=== PATIENT | male | born 1945 ===

== ENCOUNTER 2017-01-25 15:10 | Inpatient (IN) | payer OTHER ==
[2017-01-25 15:14] VITALS: BMI 22.3
--- NOTE | 2017-01-25 16:23 | CT ---
PROCEDURE: CT NECK WITHOUT CONTRAST HISTORY: retaind food right throat COMPARISON: None. TECHNIQUE: CT of the neck without intravenous contrast. Coronal and sagittal reformats generated. Radiation dose: DLP 384.2 mGy-cm This CT exam was performed using one or more of the following dose reduction techniques: Automated exposure control, adjustment of the mA and/or kV according to patient size, and/or use of iterative reconstruction technique. FINDINGS: NASOPHARYNX: Unremarkable. SUPRAHYOID NECK: Unremarkable oropharynx, oral cavity, parapharyngeal space and retropharyngeal space. INFRAHYOID NECK: Unremarkable larynx, hypopharynx, and supraglottic space. Vocal cords intact. MASS: None. GLANDS: Parotid and submandibular glands unremarkable. Normal size thyroid gland, without nodule. LYMPH NODES: Normal. No lymphadenopathy. CERVICAL SPINE: No fracture or focal lesion. OTHER FINDINGS: There is linear shaped high density likely bone at the proximal esophagus extending from posterior aspect of the re- choroid cartilage on image 56 to the proximal portion of the esophagus at image 64. IMPRESSION: Suspicious for foreign body likely bone extending posterior to the larynx into the proximal portion of the esophagus from image 54 to image 65. Otherwise no evidence of acute pathology in the neck.
--- NOTE | 2017-01-25 16:39 | C.PDOC ---
History Of Present Illness 71 year old patient, with no significant past medical history, presents to the ED complaining of foreign body sensation and pain to the right laryngeal region since yesterday. Patient states he has few teeth that are spaced far apart and often has trouble chewing his food. Patient states he was eating fried chicken and swallowed a big piece. He has had a foreign body sensation in his throat since then. Patient notes he is able to swallow without difficulty. Patient denies any obstructions, vomiting, fever, chills, or any trouble breathing. Time Seen by Provider: 01/25/17 15:24 Chief Complaint (Nursing): Foreign Body History Per: Patient History/Exam Limitations: None Onset/Duration Of Symptoms: Days (yesterday) Current Symptoms Are (Timing): Still Present Quality (Mouth/Throat): Other (foreign body sensation) Symptoms Have Been: Continuous Severity: Mild Pain Scale Rating Of: 3 Past Medical History Reviewed: Historical Data, Nursing Documentation, Vital Signs Vital Signs: Last Vital Signs Temp 98.3 F 01/25/17 15:13 Pulse 97 H 01/25/17 15:13 Resp 20 01/25/17 15:13 BP 154/106 H 01/25/17 15:13 Pulse Ox 97 01/25/17 17:16 Family History: States: Unknown Family Hx - Social History Hx Alcohol Use: Yes Hx Substance Use: No - Immunization History Hx Tetanus Toxoid Vaccination: No Hx Influenza Vaccination: No Hx Pneumococcal Vaccination: No Review Of Systems Except As Marked, All Systems Reviewed And Found Negative. Constitutional: Negative for: Fever, Chills ENT: Positive for: Throat Pain (right lower laryngeal area), Other (foreign body sensation to right side of throat) Respiratory: Negative for: Shortness of Breath Gastrointestinal: Negative for: Vomiting Physical Exam - Physical Exam Appears: Non-toxic, No Acute Distress Skin: Warm, Dry Head: Atraumatic, Normacephalic Eye(s): bilateral: Normal Inspection, PERRL, EOMI Ear(s): Bilateral: Normal Nose: Normal Oral Mucosa: Moist Tongue: Normal Appearing Lips: Normal Appearing Teeth: Other (poor dentition; few teeth spaced far apart) Gingiva: Normal Appearing Throat: Normal, No Erythema, No Exudate Neck: Normal ROM, Supple, Other (tenderness to the right side of the trachea) Chest: Symmetrical Cardiovascular: Rhythm Regular Respiratory: Normal Breath Sounds, No Rales, No Rhonchi, No Wheezing Gastrointestinal/Abdominal: Soft, No Tenderness Back: Normal Inspection Extremity: Normal ROM Neurological/Psych: Oriented x3, Normal Speech, Normal Cognition Gait: Steady ED Course And Treatment - Laboratory Results Result Diagrams: 01/25/17 17:00 01/25/17 17:19 Lab Interpretation: Abnormal (Elevated WBC 13.3 with left shift.) ECG: Interpreted By Wv ECG Rhythm: Sinus Rhythm ECG Interpretation: Normal O2 Sat by Pulse Oximetry: 97 (room air) Pulse Ox Interpretation: Normal - Radiology CXR: Interpreted by Me CXR Interpretation: Yes: No Acute Disease - CT Scan/US Neck soft tissue CT w/o contrast Other Rad Studies (CT/US): Read By Radiologist (Meri Anderson), Radiology Report Reviewed CT/US Interpretation: PROCEDURE: CT NECK WITHOUT CONTRAST. HISTORY: retaind food right throat. COMPARISON: None. TECHNIQUE: CT of the neck without intravenous contrast. Coronal and sagittal reformats generated. Radiation dose : DLP 384.2 mGy-cm. This CT exam was performed using one or more of the following dose reduction techniques: Automated exposure control, adjustment of the mA and/or kV according to patient size, and/or use of iterative reconstruction technique. FINDINGS: NASOPHARYNX: Unremarkable. SUPRAHYOID NECK: Unremarkable oropharynx, oral cavity, parapharyngeal space and retropharyngeal space. INFRAHYOID NECK: Unremarkable larynx, hypopharynx, and supraglottic space. Vocal cords intact. MASS: None. GLANDS: Parotid and submandibular glands unremarkable. Normal size thyroid gland, without nodule. LYMPH NODES: Normal. No lymphadenopathy. CERVICAL SPINE: No fracture or focal lesion. OTHER FINDINGS: There is linear shaped high density likely bone at the proximal esophagus extending from posterior aspect of the re- choroid cartilage on image 56 to the proximal portion of the esophagus at image 64. IMPRESSION: Suspicious for foreign body likely bone extending posterior to the larynx into the proximal portion of the esophagus from image 54 to image 65. Otherwise no evidence of acute pathology in the neck. Reevaluation Time: 18:12 Reassessment Condition: Unchanged - Physician Consult Information Physician Contacted: Hannah Lugo Outcome Of Conversation: Case discussed with Dr Cline. He will be admitted to hospitalist and Dr Thompson will remove the bone tonight. He needs to stay overnight for observation. Medical Decision Making Medical Decision Making: Plan: * Neck soft tissue CT w/o contrast Progress: Case discussed with Dr. Choudhury who is aware of the plan and advises to obtain a Neck CT. After CT review case is referred to GI honey extractor, Dr Dean. Disposition - Disposition Disposition: HOSPITALIZED Disposition Time: 18:15 Condition: STABLE - POA Present On Arrival: None - Clinical Impression Clinical Impression: Swallowed foreign body - Scribe Statement The provider has reviewed the documentation as recorded by the Scribe Katharine Boateng Provider Attestation: All medical record entries made by the Scribe were at my direction and personally dictated by me. I have reviewed the chart and agree that the record accurately reflects my personal performance of the history, physical exam, medical decision making, and the department course for this patient. I have also personally directed, reviewed, and agree with the discharge instructions and disposition.
[2017-01-25 17:23] LABS: BASO % 0.2 % (0.0-2.0); EOS # 0.1 K/uL (0.0-0.7); EOS % 0.6 % (0.0-4.0); HEMATOCRIT 46.2 % (35.0-51.0); MEAN CELL VOLUME 91.6 fL (80.0-94.0); MEAN CORPUSCULAR HEMOGLOBIN 31.5 pg (27.0-31.0); MEAN CORPUSCULAR HGB CONC 34.3 g/dL (33.0-37.0); MEAN PLATELET VOLUME 7.3 fL (7.2-11.7); MONO % 7.2 % (0.0-10.0); RED CELL DISTRIBUTION WIDTH 13.3 % (11.5-14.5); WHITE BLOOD COUNT 13.3 K/uL (4.8-10.8)
[2017-01-25 17:36] LABS: CHLORIDE 100 mmol/L (98-107); POTASSIUM 3.9 mmol/L (3.6-5.2); SODIUM 139 mmol/L (132-148)
[2017-01-25 17:38] LABS: ALB/GLOB RATIO 1.3 (1.0-2.1); AST/SGOT 23 U/L (17-59); BILIRUBIN,TOTAL 1.2 mg/dL (0.2-1.3); CARBON DIOXIDE 25 mmol/L (22-30); GFR AFRICAN-AMERICAN > 60; TOTAL PROTEIN 8.2 g/dL (6.3-8.3)
[2017-01-25 17:39] LABS: ALKALINE PHOSPHATASE 88 U/L (38-126); ALT/SGPT 19 U/L (21-72); BLOOD UREA NITROGEN 12 mg/dL (9-20); CALCIUM 8.7 mg/dl (8.6-10.4); GLUCOSE,RANDOM 112 mg/dL (75-110)
[2017-01-25] MEDS ORDERED: Piperacillin/Tazobact 3.375 gm 100 ML IV STA (17:56)
[2017-01-25] MEDS ORDERED: Piperacillin/Tazobact 3.375 gm 100 ML IVPB ONE (18:20)
[2017-01-25 19:12] LABS: INR 1.1
--- NOTE | 2017-01-25 19:16 | CP.PCM.HP ---
<Contreras Gee - Last Filed: 01/25/17 19:12> History of Present Illness - History of Present Illness History of Present Illness: This is a 71 yo male, former smoker, with no reported past medical, sx hx presenting with chief complaint of dysphagia. Pt was at fast food restaurant at 630 pm yesterday eating breast of chicken. He thought something got stuck in his throat and he immediately felt pain. He finished eating but with pain. This morning, he only ate some bread and cheese and some sips of water, all with pain. He has pain on right side of neck. PMH: None PSH: None Allergies: NKDA FH: Denies Current meds: none Social hx: Former smoker. 2 beers/day. No illicit drugs. From [facility]. Lives with friend. Children are in [facility]. Present on Admission - Present on Admission Any Indicators Present on Admission: No History of DVT/PE: No History of Uncontrolled Diabetes: No Urinary Catheter: No Decubitus Ulcer Present: No Review of Systems - Review of Systems All systems: reviewed and no additional remarkable complaints except Review of Systems: Negative except as stated in HPI. Past Patient History - Infectious Disease Hx of Infectious Diseases: None - Past Medical History & Family History Past Medical History?: No Past Family History: Reviewed and not pertinent - Past Social History Smoking Status: Former Smoker Chewing Tobacco Use: No Cigar Use: No Alcohol: Occasional Drugs: Denies Home Situation {Lives}: Friends Domestic Violence: Negative - PSYCHIATRIC Hx Substance Use: No - SURGICAL HISTORY Hx Surgeries: No - ANESTHESIA Hx Anesthesia: No Meds Allergies/Adverse Reactions: Allergies Allergy/AdvReac Type Severity Reaction Status Date / Time No Known Allergies Allergy Verified 01/25/17 15:13 Physical Exam - Constitutional Appears: Non-toxic, No Acute Distress - Head Exam Head Exam: ATRAUMATIC, NORMAL INSPECTION, NORMOCEPHALIC - Eye Exam Eye Exam: EOMI - ENT Exam ENT Exam: Mucous Membranes Moist - Neck Exam Neck exam: Positive for: Full Rom, Normal Inspection - Respiratory Exam Respiratory Exam: NORMAL BREATHING PATTERN. absent: Respiratory Distress - Cardiovascular Exam Cardiovascular Exam: +S1, +S2 - GI/Abdominal Exam GI & Abdominal Exam: Normal Bowel Sounds, Soft. absent: Tenderness - Extremities Exam Extremities exam: Positive for: full ROM, normal inspection - Back Exam Back exam: NORMAL INSPECTION - Neurological Exam Neurological exam: Alert, Oriented x3 - Psychiatric Exam Psychiatric exam: Normal Affect, Normal Mood - Skin Skin Exam: Dry, Intact, Normal Color, Warm Results - Vital Signs Recent Vital Signs: Last Vital Signs Temp 98.3 F 01/25/17 15:13 Pulse 92 H 01/25/17 19:05 Resp 16 01/25/17 19:05 BP 124/86 01/25/17 19:05 Pulse Ox 99 01/25/17 19:05 - Labs Result Diagrams: 01/25/17 17:00 01/25/17 17:19 Assessment & Plan - Assessment and Plan (Free Text) Assessment: This is a 71 yo male with no reported past medical or sx history presenting with 1. Foreign body in throat -soft tissue neck ct without contrast shows foreign body likely bone posterior to the larynx into the proximal portion of esophagus -GI consult. recs appreciated with Dr. Smith. -will likely go to OR for removal -NPO -coags ordered -CXR negative -pt is moderate risk for sx based on age. BP appears to be uncontrolled - will stabilize in preparation for medium risk procedure 2. Hypertensive urgency -1 stat dose of hydralazine given -will given prn hydralazine 10 mg iv q 6 hrs -echo pending -ekg shows NSR, no st changes 3. GI/DVT ppx -protonix iv daily -SCDs discussed with Dr. Lugo <Hannah Lugo V - Last Filed: 01/25/17 20:23> Results - Vital Signs Recent Vital Signs: Last Vital Signs Temp 98.0 F 01/25/17 19:40 Pulse 88 01/25/17 19:40 Resp 16 01/25/17 19:40 BP 155/81 H 01/25/17 19:40 Pulse Ox 97 01/25/17 19:40 - Labs Result Diagrams: 01/25/17 17:00 01/25/17 17:19 Labs: Laboratory Results - last 24 hr 01/25/17 18:50 PT 11.8 INR 1.1 APTT 33 Attending/Attestation - Attestation I have personally seen and examined this patient.: Yes I have fully participated in the care of the patient.: Yes I have reviewed all pertinent clinical information: Yes Notes (Text): Patient seen, examined and case discussed with day-time resident. Patient seen in [facility] Bed [facility] Emergency Room at approximately 6:30PM on 01/25/17. Patient seen at bedside. Patient reports he ate chicken breast yesterday and today he felt something in his throat when he drank water today. Patient initially thought it was meat coming up which was why he waited before coming to the emergency room today. Patient reports the last time he has seen a doctor was about 20 years ago. Patient reports he is a former smoker. In regards to code status, patient reports under circumstances wherein his heart stops, he does not want CPR nor medications to restart the heart, he reports "allow me to go naturally" and patient reports in extenuating circumstances wherein he cannot breathe for himself (outside of procedure to remove the chicken bone) he does not want to be left on a machine. Patient does not have family here in the [place]. He reports his family is in [facility]. Conversation in presence of my resident and myself. Assessment/Plan 1. Foreign body in throat * Soft tissue neck ct without contrast (01/24/17) shows foreign body likely bone posterior to the larynx into the proximal portion of esophagus * GI consult. recs appreciated with Dr. Smith. * Patient to go for EGD * NPO * coags ordered * CXR negative * EKG: NSR * Based on APA/AHA guidelines, patient is medium to high risk given his age (71 years old), for procedure. Patient denies prior history of blood pressure problems but notes he has not seen a doctor in 20 years. Will attempt to stabilize blood pressure prior to procedure. 2. Hypertensive urgency * asymptomatic * No prior blood pressure history; has not seen a doctor in 20 years * Given Hydralazine 10mg IV X1 * SBP PRN: Hydralazine 10mg IV Q 6hour PRN SBP>160 * Echocardiogram ordered * Ekg shows NSR, no st changes 3. GI/DVT ppx * protonix 40mg PO daily * SCDs * Contraindications to VTE secondary for possible OR * Palliative care: code status
--- NOTE | 2017-01-25 19:53 | CP.PCM.CON ---
<Vidya Cole - Last Filed: 01/25/17 20:22> History of Present Illness - History of Present Illness History of Present Illness: Gastroenterology Fellow/PGY4 Consult Note 71 year old male with no prior medical history presenting with throat pain. Patient describes sudden right-sided anterior neck pain after swallowing a bite of fried chicken at 830PM. He notes he has few teeth in his mouth and uses a fork to separate bites of meat since he is unable to properly bite into his food. He did not note a bone in the chicken but describes completing the meal despite the pain in hope sit would resolve with continued food boluses. He attempted a couple bites of bread and cheese with sips of water at 11AM in hopes that it was a piece of meat stuck and it would pass but noted no relief. He had no further food or liquid since 11Am but notes persistent pain worsened by swallowing normal amounts of saliva produced through the day leading to ER presentation. At present, right mid-anterior neck pain has not progressed, pain scale 9.5/10. He denies present or prior issues with dysphagia, odynophagia, nausea, vomiting, hematemesis, heartburn, indigestion, acid reflux, chest pain, shortness of breath, abdominal pain, diarrhea, constipation, melena, unintentional weight loss. No prior EGD or colonoscopy. Patient has not seen a PCP since 30 years ago only related to requiring stitches of right eyebrow. Family- denies liver cancer, colon cancer, esophageal cancer Social- notes intake of alcohol since 1 month old with his culture, regular intake of wine starting 15 years ago for five years, followed by social wine intake for three years, and at present 3 beers everyday for the last 2 years; quit tobacco five years ago, no illicit drug use Surgery- none, stitches middle right eyebrow 2/2 to mechanical fall, self treated wound mid left eyebrow since to mechanical fall Review of Systems - Review of Systems Review of Systems: A 12-point review of systems negative except for as above Past Patient History - Infectious Disease Hx of Infectious Diseases: None - Past Medical History & Family History Past Medical History?: No Past Family History: Reviewed and not pertinent - Past Social History Smoking Status: Former Smoker Chewing Tobacco Use: No Cigar Use: No Alcohol: Occasional Drugs: Denies Home Situation {Lives}: Friends Domestic Violence: Negative - PSYCHIATRIC Hx Substance Use: No - SURGICAL HISTORY Hx Surgeries: No - ANESTHESIA Hx Anesthesia: No Meds Allergies/Adverse Reactions: Allergies Allergy/AdvReac Type Severity Reaction Status Date / Time No Known Allergies Allergy Verified 01/25/17 15:13 - Medications Medications: Current Medications Hydralazine HCl (Apresoline) 10 mg IVP Q6 PRN PRN Reason: Systolic Blood Pressure Physical Exam - Constitutional Appears: Non-toxic, No Acute Distress - Head Exam Head Exam: ATRAUMATIC, NORMOCEPHALIC - Eye Exam Eye Exam: EOMI, PERRL Pupil Exam: NORMAL ACCOMODATION, PERRL. absent: Miosis, Mydriatic - ENT Exam ENT Exam: Mucous Membranes Moist, Normal Oropharynx - Neck Exam Neck exam: Positive for: Full Rom, Normal Inspection. Negative for: Tenderness Additional comments: no signs of crepitus, discomfort to palpation of right anterior neck - Respiratory Exam Respiratory Exam: Clear to Auscultation Bilateral. absent: Rales, Rhonchi, Wheezes - Cardiovascular Exam Cardiovascular Exam: RRR, +S1, +S2. absent: Gallop, Rubs - GI/Abdominal Exam GI & Abdominal Exam: Normal Bowel Sounds, Soft. absent: Distended, Firm, Guarding, Organomegaly, Rebound, Rigid, Tenderness - Extremities Exam Extremities exam: Positive for: full ROM. Negative for: pedal edema - Neurological Exam Neurological exam: Alert, Oriented x3 - Psychiatric Exam Psychiatric exam: Normal Affect, Normal Mood - Skin Skin Exam: Dry, Intact, Normal Color, Warm Results - Vital Signs Recent Vital Signs: Last Vital Signs Temp 98.3 F 01/25/17 15:13 Pulse 92 H 01/25/17 19:05 Resp 16 01/25/17 19:05 BP 124/86 01/25/17 19:05 Pulse Ox 99 01/25/17 19:05 - Labs Result Diagrams: 01/25/17 17:00 01/25/17 17:19 Labs: Laboratory Results - last 24 hr 01/25/17 18:50 PT 11.8 INR 1.1 APTT 33 Assessment & Plan - Assessment and Plan (Free Text) Assessment: 71 year old male with no prior medical history presenting with throat pain. CT neck confirms foreign body posterior to larynx extending into proximal esophagus. No prior EGD or colonoscopy. Plan: >discussed with ENT, Dr. Choudhury >unable to visualize with laryngoscope >last oral intake of solids and liquids at 11AM >NPO >plan for urgent EGD for assessment of foreign body location, structures involved, and risk versus benefit of removal at time of exam >risks including perforation, bleeding, respiratory compromise, inability to remove foreign object, and discussed with the patient >will require cardiothoracic surgeon to perform direct esophagoscopy if removal of foreign body is unsuccessful during EGD >patient understands above plan and has provide consent to EGD with anesthesia, consents to intubation >further recommendations based on clinical course <Phyllis Smith - Last Filed: 01/25/17 20:31> Meds - Medications Medications: Current Medications Hydralazine HCl (Apresoline) 10 mg IVP Q6 PRN PRN Reason: Systolic Blood Pressure Results - Vital Signs Recent Vital Signs: Last Vital Signs Temp 98.0 F 01/25/17 19:40 Pulse 88 01/25/17 19:40 Resp 16 01/25/17 19:40 BP 155/81 H 01/25/17 19:40 Pulse Ox 97 01/25/17 19:40 - Labs Result Diagrams: 01/25/17 17:00 01/25/17 17:19 Labs: Laboratory Results - last 24 hr 01/25/17 18:50 PT 11.8 INR 1.1 APTT 33 Attending/Attestation - Attestation I have personally seen and examined this patient.: Yes I have fully participated in the care of the patient.: Yes I have reviewed all pertinent clinical information: Yes Notes (Text): Patient seen and examined with GI fellow. Agree with her note as documented above with the following additions/exceptions. This is a 71 year old who presents to ER with foreign body sensation and visualized bone on CT of neck. The patient has poor dentition and reports swallowing piece of fried chicken bone yesterday evening and thereafter has been having R anterior neck pain with swallowing and difficulty swallowing. His last oral intake was 11AM today, where he was unable to tolerate food, associated with odynophagia. No prior history of dysphagia. He has never had prior EGD/colonoscopy in the past. He is comfortable at present. ENT evaluated, CT neck showing bone structure in proximal esophagus, posterior to larynx. Will plan for urgent EGD. Keep NPO. Risks, benefits and alternatives to proceed were explained in detail and the patient agrees to proceed. He understands risk of perforation, bleeding, etc. Further recommendations pending EGD evaluation. 01/25/17 20:30
[2017-01-25] MEDS ORDERED: Lactated Ringer's 1,000 ML IV ONE ×3 (20:54→21:33)
[2017-01-25 22:56] LABS: ABG ALLEN TEST POS; ABG MECHANICAL RATE 12; DRAW SITE RRA
[2017-01-25] MEDS: Dexmedetomidine Hydrochloride 200 MCG in Sodium Chloride 0.9% 48 ML IV PRN (23:00)
[2017-01-25] MEDS ORDERED: Folic Acid 1 MG, Thiamine 100 MG, Multivitamin (MVI) 10 ML in Dextrose 5% In Water 1,00... IV PRN (23:00)
--- NOTE | 2017-01-25 23:03 | CP.PCM.CON ---
History of Present Illness - History of Present Illness History of Present Illness: Post endoscopic evaluation, and retrieval of the foreign body. Patient admitted postoperatively for ventilator management. History: 71-year-old male history of smoking or alcoholism came to the emergency room visit with the dyspnea. Patient had a chicken, following that the got stuck in the throat, and he started having some pain. He was having significant pain, and he came into the emergency room. Evaluation was noted to have foreign body obstruction in the upper esophageal area. Patient needed immediate surgical intervention to remove foreign body. Patient had a difficult time in getting the following body, there was also supralaryngeal in the supraglottic swelling identified, to maintain the airway anesthesiologist, and her to keep the ventilation on until the swelling subsides. Patient is currently in the ventilator, and ICU. He is awake and responding. Agitated sometimes. Past medical history none further history is not available On examination: Temp Pulse Resp BP Pulse Ox 98.0 F 82 16 155/81 H 97 01/25/17 19:40 01/25/17 22:20 01/25/17 19:40 01/25/17 19:40 01/25/17 19:40 Patient is on vent, vital signs stable, elevated blood pressure noted, chest good air entry bilaterally regular heart sound, nontender abdomen, edema noted Labs reviewed ABG nonspecific, oxygenation is adequate Chest x-ray no acute abnormality noted. Assessment and recommendation: 71-year-old male admitted to the hospital with the following that obstruction of the upper esophagus, status post retrieval and removal of the chicken bone. Supra glottic edema on ventilator currently. Will closely monitor. Supportive care. Sedation. I see management Past Patient History - Infectious Disease Hx of Infectious Diseases: None - Past Medical History & Family History Past Medical History?: No Past Family History: Reviewed and not pertinent - Past Social History Smoking Status: Former Smoker Chewing Tobacco Use: No Cigar Use: No Alcohol: Occasional Drugs: Denies Home Situation {Lives}: Friends Domestic Violence: Negative - PSYCHIATRIC Hx Substance Use: No - SURGICAL HISTORY Hx Surgeries: No - ANESTHESIA Hx Anesthesia: No Meds Allergies/Adverse Reactions: Allergies Allergy/AdvReac Type Severity Reaction Status Date / Time No Known Allergies Allergy Verified 01/25/17 15:13 - Medications Medications: Current Medications Hydralazine HCl (Apresoline) 10 mg IVP Q6 PRN PRN Reason: Systolic Blood Pressure Dexmedetomidine HCl 200 mcg/ (Sodium Chloride) 50 mls @ 3.03 mls/hr IV TITR PRN ; Protocol; 0.2 MCG/KG/HR PRN Reason: Sedation Folic Acid 1 mg/ Thiamine HCl 100 mg/ Multivitamins/Vitamin C 10 ml/ Dextrose 1 ,011.2 mls @ 75 mls/hr IV .[id number] PRN Lorazepam (Ativan) 2 mg IVP Q6H PRN PRN Reason: Anxiety Pantoprazole Sodium (Protonix Inj) 40 mg IVP Q12H RILEY Results - Vital Signs Recent Vital Signs: Last Vital Signs Temp 98.0 F 01/25/17 19:40 Pulse 82 01/25/17 22:20 Resp 16 01/25/17 19:40 BP 155/81 H 01/25/17 19:40 Pulse Ox 97 01/25/17 19:40 - Labs Result Diagrams: 01/25/17 17:00 01/25/17 17:19 Labs: Laboratory Results - last 24 hr 01/25/17 01/25/17 18:50 22:45 PT 11.8 INR 1.1 APTT 33 Puncture Site Rra pCO2 37 pO2 255 H HCO3 23.3 ABG pH 7.39 ABG Total CO2 23.5 ABG O2 Saturation 98.0 ABG Base Excess -2.2 L Santi Test Pos ABG Potassium 3.3 L A-a O2 Difference 127.0 Respiratory Index 0.5 Sodium 141.0 Chloride 109.0 H Glucose 138 H Lactate 1.5 Mechanical Rate 12 FiO2 60.0 Tidal Volume 500 Arterial Blood Potassium 3.3 L
[2017-01-26] MEDS: Dexmedetomidine Hydrochloride 200 MCG in Sodium Chloride 0.9% 48 ML IV PRN ×2 (01:55→06:44)
--- NOTE | 2017-01-26 05:54 | CP.PCM.PN ---
<Vidya Cole - Last Filed: 01/26/17 08:06> Subjective - Date & Time of Evaluation Date of Evaluation: 01/26/17 Time of Evaluation: 05:51 - Subjective Subjective: Gastroenterology Fellow/PGY4 Progress Note Patient on ventilator support and tracking with eyes. Nursing notes titrating of Precedex overnight for initial agitation and receiving banana bag with alcohol use. No acute event overnight. Unable to complete 12-point review of systems while on ventilator support. Objective - Vital Signs/Intake and Output Vital Signs (last 24 hours): Temp Pulse Resp BP Pulse Ox 97.8 F 69 16 87/55 L 97 01/26/17 00:00 01/26/17 04:10 01/26/17 04:10 01/26/17 04:08 01/26/17 04:10 Intake and Output: 01/25/17 01/26/17 18:59 06:59 Intake Total 655.9 Output Total 200 Balance 455.9 - Medications Medications: Current Medications Hydralazine HCl (Apresoline) 10 mg IVP Q6 PRN PRN Reason: Systolic Blood Pressure Dexmedetomidine HCl 200 mcg/ (Sodium Chloride) 50 mls @ 3.03 mls/hr IV TITR PRN ; Protocol; 0.2 MCG/KG/HR PRN Reason: Sedation Last Admin: 01/26/17 01:55 Dose: 0.8 mcg/kg/hr, 12.2 mls/hr Folic Acid 1 mg/ Thiamine HCl 100 mg/ Multivitamins/Vitamin C 10 ml/ Dextrose 1 ,011.2 mls @ 75 mls/hr IV .[id number] PRN Last Admin: 01/25/17 23:30 Dose: 75 mls/hr Lorazepam (Ativan) 2 mg IVP Q6H PRN PRN Reason: Anxiety Last Admin: 01/25/17 22:45 Dose: 2 mg Pantoprazole Sodium (Protonix Inj) 40 mg IVP Q12H RILEY Last Admin: 01/25/17 23:35 Dose: 40 mg - Labs Labs: PT 11.8 SECONDS (9.7-12.2) 01/25/17 18:50 INR 1.1 01/25/17 18:50 APTT 33 SECONDS (21-34) 01/25/17 18:50 - Constitutional Appears: Non-toxic, No Acute Distress - Head Exam Head Exam: ATRAUMATIC, NORMOCEPHALIC - Eye Exam Eye Exam: EOMI, PERRL Pupil Exam: PERRL. absent: Miosis, Mydriatic - ENT Exam ENT Exam: Mucous Membranes Moist, Normal Oropharynx Additional comments: ETT in place - Neck Exam Neck Exam: Normal Inspection. absent: Tenderness Additional comments: no signs of crepitus - Respiratory Exam Respiratory Exam: Clear to Ausculation Bilateral. absent: Rales, Rhonchi, Wheezes - Cardiovascular Exam Cardiovascular Exam: RRR, +S1, +S2. absent: Gallop, Rubs - GI/Abdominal Exam GI & Abdominal Exam: Soft, Normal Bowel Sounds. absent: Distended, Firm, Guarding, Rigid, Tenderness, Organomegaly, Rebound - Extremities Exam Extremities Exam: Normal Inspection. absent: Pedal Edema - Neurological Exam Additional comments: on Precedex for sedation, eyes open and tracking - Psychiatric Exam Additional comments: unable to assess on ventilator support - Skin Skin Exam: Dry, Intact, Normal Color, Warm Assessment and Plan - Assessment and Plan (Free Text) Assessment: 71 year old male with no prior medical history presenting with throat pain. CT neck confirms foreign body posterior to larynx extending into proximal esophagus. POD1 (01/25) EGD with foreign body removal from esophageal sphincter. No prior EGD or colonoscopy. Plan: >remained on ventilator support overnight due to extensive manipulation for foreign body removal >ICU managing timing of wean trial >weaning Precedex >okay to wean from GI standpoint today >continue Zosyn, complete 5 day antibiotic course >provide lidocaine suspension once extubatd >liquid diet once extubated >on banana bag >thank you for opportunity to participate in the care of this patient. <Sammy Dean - Last Filed: 01/26/17 09:04> Objective - Vital Signs/Intake and Output Vital Signs (last 24 hours): Temp Pulse Resp BP Pulse Ox 98.6 F 66 15 94/56 L 99 01/26/17 08:00 01/26/17 08:10 01/26/17 08:10 01/26/17 08:08 01/26/17 08:10 Intake and Output: 01/26/17 01/26/17 06:59 18:59 Intake Total 846.2 162.2 Output Total 300 0 Balance 546.2 162.2 - Medications Medications: Current Medications Dexmedetomidine HCl 200 mcg/ (Sodium Chloride) 50 mls @ 3.03 mls/hr IV TITR PRN ; Protocol; 0.2 MCG/KG/HR PRN Reason: Sedation Last Admin: 01/26/17 06:44 Dose: 0.4 mcg/kg/hr, 6.1 mls/hr Folic Acid 1 mg/ Thiamine HCl 100 mg/ Multivitamins/Vitamin C 10 ml/ Dextrose 1 ,011.2 mls @ 75 mls/hr IV .[id number] PRN Last Admin: 01/25/17 23:30 Dose: 75 mls/hr Piperacillin Sod/Tazobactam Sod (Zosyn 3.375 Gm Iv Premix) 3.375 gm in 50 mls @ 100 mls/hr IVPB Q6H RILEY Last Admin: 01/26/17 06:40 Dose: 100 mls/hr Lorazepam (Ativan) 2 mg IVP Q6H PRN PRN Reason: Anxiety Last Admin: 01/25/17 22:45 Dose: 2 mg Pantoprazole Sodium (Protonix Inj) 40 mg IVP Q12H RILEY Last Admin: 01/25/17 23:35 Dose: 40 mg - Labs Labs: 01/26/17 06:09 01/26/17 06:09 PT 11.8 SECONDS (9.7-12.2) 01/25/17 18:50 INR 1.1 01/25/17 18:50 APTT 33 SECONDS (21-34) 01/25/17 18:50 Attending/Attestation - Attestation I have personally seen and examined this patient.: Yes I have fully participated in the care of the patient.: Yes I have reviewed all pertinent clinical information, including history, physical exam and plan: Yes Notes (Text): 01/26/17 09:00 I have seen and examined patient with GI fellow. No acute events overnight, he remains intubated following esophageal foreign body extraction last night. He is minimally sedated, though remains alert and makes appropriate head and hand gestures. ETOH abuse Dysphagia, esophageal foreign body (chicken bone) s/p emergent EGD with removal yesterday - Continue with antibiotic therapy to complete 5 day course - Suggest lidocaine swish/swallow after patient has been extubated - ETOH cessation counseling - Ventilator weaning and extubation as per critical care team - May initiate trial of clear liquids once patient extubated and advance slowly as tolerated - No ongoing GI issues, will sign off case. Please reconsult as necessary, thank you.
[2017-01-26 05:56] LABS: ABG MECHANICAL RATE 12; ARTERIAL BLOOD HGB O2 SAT 96.4 % (95.0-98.0); ATERIAL BLOOD GAS PEEP 5; CARBOXYHEMOGLOBIN 0.3 % (0.5-1.5); DRAW SITE RB; HHB 2.3 % (0.0-5.0)
[2017-01-26 06:16] LABS: BASO % 0.2 % (0.0-2.0); EOS % 0.3 % (0.0-4.0); HEMATOCRIT 39.7 % (35.0-51.0); LYMPH # 1.5 K/uL (1.0-4.3); LYMPH % 16.5 % (20.0-40.0); MEAN CELL VOLUME 91.4 fL (80.0-94.0); MEAN CORPUSCULAR HGB CONC 33.9 g/dL (33.0-37.0); MEAN PLATELET VOLUME 7.6 fL (7.2-11.7); MONO # 0.6 K/uL (0.0-0.8); MONO % 6.6 % (0.0-10.0); WHITE BLOOD COUNT 9.2 K/uL (4.8-10.8)
[2017-01-26 06:30] LABS: CHLORIDE 102 mmol/L (98-107); POTASSIUM 3.6 mmol/L (3.6-5.2); SODIUM 135 mmol/L (132-148)
[2017-01-26 06:32] LABS: ALB/GLOB RATIO 1.2 (1.0-2.1); ALKALINE PHOSPHATASE 60 U/L (38-126); AST/SGOT 17 U/L (17-59); BILIRUBIN,TOTAL 1.3 mg/dL (0.2-1.3); CARBON DIOXIDE 21 mmol/L (22-30); GFR AFRICAN-AMERICAN > 60; TOTAL PROTEIN 6.5 g/dL (6.3-8.3)
[2017-01-26 06:33] LABS: ALT/SGPT 15 U/L (21-72); BLOOD UREA NITROGEN 14 mg/dL (9-20); CALCIUM 8.2 mg/dl (8.6-10.4); GLUCOSE,RANDOM 185 mg/dL (75-110); MAGNESIUM 1.8 mg/dL (1.6-2.3); PHOSPHOROUS 3.3 mg/dL (2.5-4.5)
[2017-01-26] MEDS: Piperacill/Tazo 3.375gm in Dex 3.375 GM/50 ML BAG IVPB SCH ×3 (06:40→17:19)
--- NOTE | 2017-01-26 07:46 | CP.PCM.PN ---
Subjective - Date & Time of Evaluation Date of Evaluation: 01/26/17 Time of Evaluation: 07:40 - Subjective Subjective: Medical Attending Note Follow-up: Foreign Body In Throat, Elevated Blood Pressure w/o Hx of HTN, Former Smoker Patient seen, examined this morning. Patient seen this morning. Patient is awake , alert, oriented, X3, no acute distress, except for mild irritating from the intubation tube. Patient denies other complaints. Clarify reason palliative care consult to setup advance care directive for future given patient has no family in the country only. Patient permitted intubation for procedure. Discussed with patient this morning regarding the removal of chicken bone and associated swelling. Objective - Vital Signs/Intake and Output Vital Signs (last 24 hours): Temp Pulse Resp BP Pulse Ox 97.8 F 66 15 92/55 L 99 01/26/17 00:00 01/26/17 07:00 01/26/17 07:00 01/26/17 06:12 01/26/17 07:00 Intake and Output: 01/26/17 01/26/17 06:59 18:59 Intake Total 846.2 81.1 Output Total 300 0 Balance 546.2 81.1 - Medications Medications: Current Medications Hydralazine HCl (Apresoline) 10 mg IVP Q6 PRN PRN Reason: Systolic Blood Pressure Dexmedetomidine HCl 200 mcg/ (Sodium Chloride) 50 mls @ 3.03 mls/hr IV TITR PRN ; Protocol; 0.2 MCG/KG/HR PRN Reason: Sedation Last Admin: 01/26/17 06:44 Dose: 0.4 mcg/kg/hr, 6.1 mls/hr Folic Acid 1 mg/ Thiamine HCl 100 mg/ Multivitamins/Vitamin C 10 ml/ Dextrose 1 ,011.2 mls @ 75 mls/hr IV .[id number] PRN Last Admin: 01/25/17 23:30 Dose: 75 mls/hr Piperacillin Sod/Tazobactam Sod (Zosyn 3.375 Gm Iv Premix) 3.375 gm in 50 mls @ 100 mls/hr IVPB Q6H RILEY Last Admin: 01/26/17 06:40 Dose: 100 mls/hr Lorazepam (Ativan) 2 mg IVP Q6H PRN PRN Reason: Anxiety Last Admin: 01/25/17 22:45 Dose: 2 mg Pantoprazole Sodium (Protonix Inj) 40 mg IVP Q12H RILEY Last Admin: 01/25/17 23:35 Dose: 40 mg - Labs Labs: 01/26/17 06:09 01/26/17 06:09 PT 11.8 SECONDS (9.7-12.2) 01/25/17 18:50 INR 1.1 01/25/17 18:50 APTT 33 SECONDS (21-34) 01/25/17 18:50 - Constitutional Appears: Non-toxic, No Acute Distress - Head Exam Head Exam: NORMAL INSPECTION Additional comments: poor dentition intubated awake, alert, no acute distress, oriented X3 - Eye Exam Eye Exam: EOMI - ENT Exam ENT Exam: Mucous Membranes Moist - Respiratory Exam Respiratory Exam: Clear to Ausculation Bilateral, NORMAL BREATHING PATTERN. absent: Rales, Rhonchi, Wheezes - Cardiovascular Exam Cardiovascular Exam: REGULAR RHYTHM, +S1, +S2 - GI/Abdominal Exam GI & Abdominal Exam: Soft, Normal Bowel Sounds. absent: Distended, Firm, Guarding, Rigid, Tenderness, Rebound - Extremities Exam Extremities Exam: absent: Pedal Edema, Tenderness - Back Exam Back Exam: absent: CVA tenderness (L), CVA tenderness (R) - Neurological Exam Neurological Exam: Alert, Awake, Oriented x3 - Psychiatric Exam Psychiatric exam: Normal Affect, Normal Mood - Skin Skin Exam: Dry, Intact, Normal Color, Warm Assessment and Plan (1) Swallowed foreign body Assessment & Plan: Patient currently in ICU s/p EGD removal of chicken bone Consult GI Dr. Thompson on board Soft tissue xray: Suspicious for foreign body likely bone extending posterior to the larynx into the proximal protion of the esophagus. No evidence of acute pathology in the neck Discussed with GI following procedure yesterday, observe overnight in the ICU, and hopefully for possible extubation today Status: Acute (2) Elevated blood-pressure reading without diagnosis of hypertension Assessment & Plan: Patient has no prior history of hypertension Will monitor blood pressure to determine if needs oral agents or not Status: Acute (3) Prophylactic measure Assessment & Plan: protonix 40mg IV q daily for GI ppx Clarification: palliative care to setup advance care directive given he does not have family. Needed immediate surgical intervention for removal of chicken bone. Status: Acute
--- NOTE | 2017-01-26 10:52 | RAD ---
HISTORY: intubation COMPARISON: 01/25/2017 FINDINGS: LUNGS: Endotracheal tube extending into the mid thoracic trachea. Mild venous congestion. Biapical pleural thickening with upper lobe granulomatous changes. PLEURA: No significant pleural effusion identified, no pneumothorax apparent. CARDIOVASCULAR: Tortuous ectatic aorta. Mild cardiomegaly. OSSEOUS STRUCTURES: Degenerative changes in the spine and shoulders. VISUALIZED UPPER ABDOMEN: Normal. OTHER FINDINGS: None. IMPRESSION: Endotracheal tube extending into the mid thoracic trachea. Mild venous congestion. Biapical pleural thickening with upper lobe granulomatous changes.
--- NOTE | 2017-01-26 10:53 | RAD ---
HISTORY: SOB COMPARISON: No prior. TECHNIQUE: Chest PA and lateral FINDINGS: LUNGS: Mild venous congestion. PLEURA: Minimal blunting of the bilateral costophrenic angles. CARDIOVASCULAR: Mild calcification at the aortic knob. OSSEOUS STRUCTURES: No significant abnormalities. VISUALIZED UPPER ABDOMEN: Normal. OTHER FINDINGS: None. IMPRESSION: Mild venous congestion.
--- NOTE | 2017-01-26 15:41 | CP.CCUPN ---
CCU Subjective - Physician Review Subjective (Free Text): 01/26/17 15:36 PGY-1 ICU progress note Pt seen and examined at bedside. Intubated. No overnight events. Critical Care Time Spent (in minutes): 35 CCU Objective - Vital Signs / Intake & Output Vital Signs (Last 4 hours): Vital Signs Pulse Resp BP Pulse Ox 01/26/17 14:50 71 12 99 01/26/17 14:40 67 15 99 01/26/17 14:30 72 15 99 01/26/17 14:20 68 16 99 01/26/17 14:10 66 16 97 01/26/17 14:08 64 15 90/45 L 99 01/26/17 14:00 66 16 97 01/26/17 13:50 64 16 99 01/26/17 13:40 64 16 98 01/26/17 13:30 67 15 98 01/26/17 13:20 67 15 97 01/26/17 13:10 65 14 98 01/26/17 13:08 67 15 95/49 L 97 01/26/17 13:00 72 15 97 01/26/17 12:50 76 18 99 01/26/17 12:40 67 15 97 01/26/17 12:30 67 16 97 01/26/17 12:20 68 16 98 01/26/17 12:10 70 16 97 01/26/17 12:08 67 14 97/55 L 98 01/26/17 12:00 69 16 99 01/26/17 11:50 68 15 99 01/26/17 11:40 66 15 99 Intake and Output (Last 8hrs): Intake & Output 01/26/17 01/26/17 01/26/17 06:59 14:59 22:59 Intake Total 766.7 667.7 Output Total 300 625 Balance 466.7 42.7 Intake: IV 100 Intake, IV Amount 666.7 667.7 Left Antecubital 575 625 Left Distal Port 91.7 42.7 Antecubital Output: Urine 300 625 Condom 300 625 Stool 0 0 Other: # Voids Condom 1 - Physical Exam Head: Positive for: Atraumatic, Normocephalic Mouth: Positive for: Moist Mucous Membranes Respiratory/Chest: Positive for: Clear to Auscultation, Good Air Exchange, Other (intubated) Cardiovascular: Positive for: Regular Rate and Rhythm, Normal S1, S2 Abdomen: Positive for: Distention, Normal Bowel Sounds Upper Extremity: Positive for: NORMAL PULSES Lower Extremity: Positive for: NORMAL PULSES Neurological: Positive for: Other (sedated) Skin: Positive for: Warm, Dry - Medications Active Medications: Active Medications Generic Name Dose Route Start Last Admin Trade Name Freq PRN Reason Stop Dose Admin Dexmedetomidine HCl 200 mcg/ 50 mls @ 3.03 mls/hr 01/25/17 22:34 01/26/17 06: 44 Sodium Chloride IV 0.4 mcg/kg/hr TITR PRN 6.1 mls/hr Sedation Administration Protocol 0.2 MCG/KG/HR Folic Acid 1 mg/ Thiamine HCl 1,011.2 mls @ 75 mls/hr 01/25/17 23:00 23:30 100 mg/ Multivitamins/Vitamin IV 75 mls/hr C 10 ml/ Dextrose .[id number] PRN Administration Piperacillin Sod/Tazobactam Sod 3.375 gm in 50 mls @ 100 mls/hr 01/26/17 06: 15 01/26/17 06:40 Zosyn 3.375 Gm Iv Premix IVPB 100 mls/hr Q6H RILEY Administration Lorazepam 2 mg 01/25/17 22:34 01/25/17 22:45 Ativan IVP 2 mg Q6H PRN Administration Anxiety Pantoprazole Sodium 40 mg 01/25/17 22:45 01/26/17 10:17 Protonix Inj IVP 40 mg Q12H RILEY Administration - Patient Studies Lab Studies: Lab Studies 01/26/17 01/26/17 01/26/17 Range/Units 06:09 06:09 05:31 WBC 9.2 (4.8-10.8) K/uL RBC 4.34 L (4.40-5.90) Mil/uL Hgb 13.5 D (12.0-18.0) g/dL Hct 39.7 (35.0-51.0) % MCV 91.4 (80.0-94.0) fL MCH 31.0 (27.0-31.0) pg MCHC 33.9 (33.0-37.0) g/dL RDW 13.0 (11.5-14.5) % Plt Count 183 (130-400) K/uL MPV 7.6 (7.2-11.7) fL Neut % (Auto) 76.4 H (50.0-75.0) % Lymph % (Auto) 16.5 L (20.0-40.0) % Wetzel % (Auto) 6.6 (0.0-10.0) % Eos % (Auto) 0.3 (0.0-4.0) % Baso % (Auto) 0.2 (0.0-2.0) % Neut # 7.0 (1.8-7.0) K/uL Lymph # 1.5 (1.0-4.3) K/uL Wetzel # 0.6 (0.0-0.8) K/uL Eos # 0.0 (0.0-0.7) K/uL Baso # 0.0 (0.0-0.2) K/uL PT (9.7-12.2) SECONDS INR APTT (21-34) SECONDS Puncture Site Rb pCO2 36 (35-45) mm/Hg pO2 147 H (80-100) mm/Hg HCO3 24.4 (21-28) mmol/L ABG pH 7.42 (7.35-7.45) ABG Total CO2 24.5 (22-28) mmol/L ABG O2 Saturation 97.7 (95-98) % ABG Base Excess -0.7 (-2.0-3.0) mmol/L ABG Hemoglobin 14.1 (11.7-17.4) g/dL ABG Carboxyhemoglobin 0.3 L (0.5-1.5) % POC ABG HHb (Measured) 2.3 (0.0-5.0) % ABG Methemoglobin 1.0 (0.0-3.0) % Santi Test Na ABG Potassium (3.6-5.2) mmol/L A-a O2 Difference 165.0 mm/Hg Respiratory Index 1.1 Hgb O2 Saturation 96.4 (95.0-98.0) % Sodium 135 (132-148) mmol/l Chloride 102 (98-107) mmol/L Glucose (75-110) mg/dl Lactate (0.7-2.1) mmol/L Mechanical Rate 12 FiO2 50.0 % Tidal Volume 500 PEEP 5 Potassium 3.6 (3.6-5.2) mmol/L Carbon Dioxide 21 L (22-30) mmol/L Anion Gap 16 (10-20) BUN 14 (9-20) mg/dL Creatinine 0.9 (0.8-1.5) MG/DL Est GFR ( Amer) > 60 Est GFR (Non-Af Amer) > 60 Random Glucose 185 H (75-110) mg/dL Calcium 8.2 L (8.6-10.4) mg/dl Phosphorus 3.3 (2.5-4.5) mg/dL Magnesium 1.8 (1.6-2.3) mg/dL Total Bilirubin 1.3 (0.2-1.3) mg/dL AST 17 D (17-59) U/L ALT 15 L D (21-72) U/L Alkaline Phosphatase 60 (38-126) U/L Total Protein 6.5 (6.3-8.3) g/dL Albumin 3.6 (3.5-5.0) g/dL Globulin 3.0 (2.2-3.9) gm/dL Albumin/Globulin Ratio 1.2 (1.0-2.1) Arterial Blood Potassium (3.6-5.2) mmol/L 01/25/17 01/25/17 Range/Units 22:45 18:50 WBC (4.8-10.8) K/uL RBC (4.40-5.90) Mil/uL Hgb (12.0-18.0) g/dL Hct (35.0-51.0) % MCV (80.0-94.0) fL MCH (27.0-31.0) pg MCHC (33.0-37.0) g/dL RDW (11.5-14.5) % Plt Count (130-400) K/uL MPV (7.2-11.7) fL Neut % (Auto) (50.0-75.0) % Lymph % (Auto) (20.0-40.0) % Wetzel % (Auto) (0.0-10.0) % Eos % (Auto) (0.0-4.0) % Baso % (Auto) (0.0-2.0) % Neut # (1.8-7.0) K/uL Lymph # (1.0-4.3) K/uL Wetzel # (0.0-0.8) K/uL Eos # (0.0-0.7) K/uL Baso # (0.0-0.2) K/uL PT 11.8 (9.7-12.2) SECONDS INR 1.1 APTT 33 (21-34) SECONDS Puncture Site Rra pCO2 37 (35-45) mm/Hg pO2 255 H (80-100) mm/Hg HCO3 23.3 (21-28) mmol/L ABG pH 7.39 (7.35-7.45) ABG Total CO2 23.5 (22-28) mmol/L ABG O2 Saturation 98.0 (95-98) % ABG Base Excess -2.2 L (-2.0-3.0) mmol/L ABG Hemoglobin (11.7-17.4) g/dL ABG Carboxyhemoglobin (0.5-1.5) % POC ABG HHb (Measured) (0.0-5.0) % ABG Methemoglobin (0.0-3.0) % Santi Test Pos ABG Potassium 3.3 L (3.6-5.2) mmol/L A-a O2 Difference 127.0 mm/Hg Respiratory Index 0.5 Hgb O2 Saturation (95.0-98.0) % Sodium 141.0 (132-148) mmol/l Chloride 109.0 H (98-107) mmol/L Glucose 138 H (75-110) mg/dl Lactate 1.5 (0.7-2.1) mmol/L Mechanical Rate 12 FiO2 60.0 % Tidal Volume 500 PEEP Potassium (3.6-5.2) mmol/L Carbon Dioxide (22-30) mmol/L Anion Gap (10-20) BUN (9-20) mg/dL Creatinine (0.8-1.5) MG/DL Est GFR ( Amer) Est GFR (Non-Af Amer) Random Glucose (75-110) mg/dL Calcium (8.6-10.4) mg/dl Phosphorus (2.5-4.5) mg/dL Magnesium (1.6-2.3) mg/dL Total Bilirubin (0.2-1.3) mg/dL AST (17-59) U/L ALT (21-72) U/L Alkaline Phosphatase (38-126) U/L Total Protein (6.3-8.3) g/dL Albumin (3.5-5.0) g/dL Globulin (2.2-3.9) gm/dL Albumin/Globulin Ratio (1.0-2.1) Arterial Blood Potassium 3.3 L (3.6-5.2) mmol/L Laboratory Results - last 24 hr 01/25/17 01/25/17 01/26/17 18:50 22:45 05:31 WBC RBC Hgb Hct MCV MCH MCHC RDW Plt Count MPV Neut % (Auto) Lymph % (Auto) Wetzel % (Auto) Eos % (Auto) Baso % (Auto) Neut # Lymph # Wetzel # Eos # Baso # PT 11.8 INR 1.1 APTT 33 Puncture Site Rra Rb pCO2 37 36 pO2 255 H 147 H HCO3 23.3 24.4 ABG pH 7.39 7.42 ABG Total CO2 23.5 24.5 ABG O2 Saturation 98.0 97.7 ABG Base Excess -2.2 L -0.7 ABG Hemoglobin 14.1 ABG Carboxyhemoglobin 0.3 L POC ABG HHb (Measured) 2.3 ABG Methemoglobin 1.0 Santi Test Pos Na ABG Potassium 3.3 L A-a O2 Difference 127.0 165.0 Respiratory Index 0.5 1.1 Hgb O2 Saturation 96.4 Sodium 141.0 Chloride 109.0 H Glucose 138 H Lactate 1.5 Mechanical Rate 12 12 FiO2 60.0 50.0 Tidal Volume 500 500 PEEP 5 Potassium Carbon Dioxide Anion Gap BUN Creatinine Est GFR ( Amer) Est GFR (Non-Af Amer) Random Glucose Calcium Phosphorus Magnesium Total Bilirubin AST ALT Alkaline Phosphatase Total Protein Albumin Globulin Albumin/Globulin Ratio Arterial Blood Potassium 3.3 L 01/26/17 01/26/17 06:09 06:09 WBC 9.2 RBC 4.34 L Hgb 13.5 D Hct 39.7 MCV 91.4 MCH 31.0 MCHC 33.9 RDW 13.0 Plt Count 183 MPV 7.6 Neut % (Auto) 76.4 H Lymph % (Auto) 16.5 L Wetzel % (Auto) 6.6 Eos % (Auto) 0.3 Baso % (Auto) 0.2 Neut # 7.0 Lymph # 1.5 Wetzel # 0.6 Eos # 0.0 Baso # 0.0 PT INR APTT Puncture Site pCO2 pO2 HCO3 ABG pH ABG Total CO2 ABG O2 Saturation ABG Base Excess ABG Hemoglobin ABG Carboxyhemoglobin POC ABG HHb (Measured) ABG Methemoglobin Santi Test ABG Potassium A-a O2 Difference Respiratory Index Hgb O2 Saturation Sodium 135 Chloride 102 Glucose Lactate Mechanical Rate FiO2 Tidal Volume PEEP Potassium 3.6 Carbon Dioxide 21 L Anion Gap 16 BUN 14 Creatinine 0.9 Est GFR ( Amer) > 60 Est GFR (Non-Af Amer) > 60 Random Glucose 185 H Calcium 8.2 L Phosphorus 3.3 Magnesium 1.8 Total Bilirubin 1.3 AST 17 D ALT 15 L D Alkaline Phosphatase 60 Total Protein 6.5 Albumin 3.6 Globulin 3.0 Albumin/Globulin Ratio 1.2 Arterial Blood Potassium Review of Systems - Review of Systems Systems not reviewed;Unavailable: Intubated Critical Care Progress Note - Nutrition Nutrition: Nutrition Category Date Time Status NPO Diet [DIET] Diets 01/25/17 Dinner Active Assessment/Plan - Assessment and Plan (Free Text) Assessment: This is a 71 yo M with no PMH that is s/p EGD (POD#1) and retrieval of foreign object (chicken bone) from esophageal sphincter. Pt intubated overnight for airway protection due extensive manipulation and soft tissue swelling. Plan: Neuro: Intubated, sedated Will being to wean today Cardiovascular: Hemodynamically stable, no acute issues Pulmonary: Intubated for airway protection Begin to wean and put to CPAP, possibly extubate if pt tolerates well. Continue to monitor Gastrointestinal: No acute issues Hematology: Hemoglobin stable, no acute issues Endocrine: No issues Renal: Making urine. Strict I/O Infectious Disease: No leukocytosis, afebrile No abx at this time GI Prophylaxis: Protonix DVT Prophylaxis: Lovenox
[2017-01-26] MEDS: Sodium Chloride 0.9% 1,000 ML IV SCH (17:31)
--- NOTE | 2017-01-26 22:27 | CARD ---
APPROVED REPORT EXAM: Two-dimensional and M-mode echocardiogram with Doppler and color Doppler. Other Information Quality : GoodRhythm : INDICATION RISK FACTORS Hypertension Smoking M-Mode DIMENSIONS RVDd1.17 (2.1-3.2cm)Left Atrium (MM)3.67 (2.5-4.0cm) IVSd0.70 (0.7-1.1cm)Aortic Root3.55 (2.2-3.7cm) LVDd4.88 (4.0-5.6cm)Aortic Cusp Exc.1.64 (1.5-2.0cm) PWd0.86 (0.7-1.1cm)FS (%) 27 % LVDs3.55 (2.0-3.8cm)LVEF (%)53 (>50%) Mitral Valve MV E Velocity8.1cm/sMV A Velocity8.0cm/sE/A ratio1.0 TDI E/Lateral E'0.0E/Medial E'0.0 Tricuspid Valve TR Peak [id number] Peak [id number] LEFT VENTRICLE The left ventricle is normal size. There is normal left ventricular wall thickness. The left ventricular function is normal. The left ventricular ejection fraction is within the normal range. About 60% No regional wall motion abnormalities noted. The left ventricular diastolic function was not assessed. No left ventricle thrombus noted on this study. There is no ventricular septal defect visualized. There is no left ventricular aneurysm. There is no mass noted in the left ventricle. RIGHT VENTRICLE The right ventricle is normal size. There is normal right ventricular wall thickness. The right ventricular systolic function is normal. ATRIA The left atrium size is normal. The right atrium size is normal. The interatrial septum is intact with no evidence for an atrial septal defect. AORTIC VALVE The aortic valve is normal in structure and function. No aortic regurgitation is present. There is no aortic valvular stenosis. There is no aortic valvular vegetation. MITRAL VALVE The mitral valve is normal in structure and function. There is no evidence of mitral valve prolapse. There is no mitral valve stenosis. There is no mitral valve regurgitation noted. TRICUSPID VALVE The tricuspid valve is normal in structure and function. There is mild tricuspid valve regurgitation noted. There is no tricuspid valve prolapse or vegetation. There is no tricuspid valve stenosis. PULMONIC VALVE The pulmonary valve is normal in structure and function. There is no pulmonic valvular regurgitation. There is no pulmonic valvular stenosis. GREAT VESSELS The aortic root is normal in size. The ascending aorta is normal in size. The pulmonary artery is normal. The IVC is normal in size and collapses >50% with inspiration. PERICARDIAL EFFUSION The pericardium appears normal. There is no pleural effusion. <Conclusion> Normal LV EF and Doppler.
--- NOTE | 2017-01-26 22:58 | CARD ---
APPROVED REPORT EKG Measurement Heart [id number] <Conclusion> Normal sinus rhythm Normal ECG
[2017-01-27] MEDS: Piperacill/Tazo 3.375gm in Dex 3.375 GM/50 ML BAG IVPB SCH ×2 (01:00→05:30)
[2017-01-27] MEDS: Sodium Chloride 0.9% 1,000 ML IV SCH (02:40)
[2017-01-27 06:49] LABS: BASO # 0.1 K/uL (0.0-0.2); BASO % 0.7 % (0.0-2.0); EOS # 0.2 K/uL (0.0-0.7); EOS % 2.1 % (0.0-4.0); HEMATOCRIT 39.8 % (35.0-51.0); LYMPH % 23.7 % (20.0-40.0); MEAN CORPUSCULAR HEMOGLOBIN 31.5 pg (27.0-31.0); MEAN CORPUSCULAR HGB CONC 34.3 g/dL (33.0-37.0); MEAN PLATELET VOLUME 7.3 fL (7.2-11.7); MONO # 0.7 K/uL (0.0-0.8); MONO % 8.7 % (0.0-10.0); NRBC % 0.1 % (0.0-2.0); WHITE BLOOD COUNT 8.5 K/uL (4.8-10.8)
[2017-01-27 07:01] LABS: CHLORIDE 104 mmol/L (98-107); POTASSIUM 3.4 mmol/L (3.6-5.2); SODIUM 137 mmol/L (132-148)
[2017-01-27 07:03] LABS: ALB/GLOB RATIO 1.1 (1.0-2.1); AST/SGOT 32 U/L (17-59); BILIRUBIN,TOTAL 2.2 mg/dL (0.2-1.3); CARBON DIOXIDE 23 mmol/L (22-30); GFR AFRICAN-AMERICAN > 60; TOTAL PROTEIN 6.5 g/dL (6.3-8.3)
[2017-01-27 07:04] LABS: ALKALINE PHOSPHATASE 58 U/L (38-126); ALT/SGPT 19 U/L (21-72); BLOOD UREA NITROGEN 12 mg/dL (9-20); GLUCOSE,RANDOM 102 mg/dL (75-110); MAGNESIUM 1.9 mg/dL (1.6-2.3); PHOSPHOROUS 2.7 mg/dL (2.5-4.5)
--- NOTE | 2017-01-27 07:19 | CP.PCM.PN ---
Subjective - Date & Time of Evaluation Date of Evaluation: 01/27/17 Time of Evaluation: 07:24 - Subjective Subjective: PGY1 Medicine note for Dr. Lugo Patient seen and examined at bedside. Patient is POD#2 EGD and retrieval of foreign object from esophageal sphincter. As per nurse, patient was extubated at 18:00 on 01/26 and had no acute events overnight. Blood pressure was controlled. Objective - Vital Signs/Intake and Output Vital Signs (last 24 hours): Temp Pulse Resp BP Pulse Ox 98.6 F 76 16 93/34 L 95 01/26/17 08:00 01/27/17 02:10 01/27/17 02:10 01/27/17 02:09 01/27/17 02:10 Intake and Output: 01/27/17 01/27/17 06:59 18:59 Intake Total 750 Output Total 440 Balance 310 - Medications Medications: Current Medications Enoxaparin Sodium (Lovenox) 40 mg SC DAILY [facility] Dexmedetomidine HCl 200 mcg/ (Sodium Chloride) 50 mls @ 3.03 mls/hr IV TITR PRN ; Protocol; 0.2 MCG/KG/HR PRN Reason: Sedation Last Admin: 01/26/17 06:44 Dose: 0.4 mcg/kg/hr, 6.1 mls/hr Folic Acid 1 mg/ Thiamine HCl 100 mg/ Multivitamins/Vitamin C 10 ml/ Dextrose 1 ,011.2 mls @ 75 mls/hr IV .[id number] PRN Last Admin: 01/25/17 23:30 Dose: 75 mls/hr Piperacillin Sod/Tazobactam Sod (Zosyn 3.375 Gm Iv Premix) 3.375 gm in 50 mls @ 100 mls/hr IVPB Q6H [facility] Last Admin: 01/27/17 05:30 Dose: 100 mls/hr Sodium Chloride (Sodium Chloride 0.9%) 1,000 mls @ 100 mls/hr IV .Q10H [facility] Last Admin: 01/27/17 02:40 Dose: 100 mls/hr Lorazepam (Ativan) 2 mg IVP Q6H PRN PRN Reason: Anxiety Last Admin: 01/25/17 22:45 Dose: 2 mg Pantoprazole Sodium (Protonix Inj) 40 mg IVP Q12H [facility] Last Admin: 01/26/17 22:06 Dose: 40 mg - Labs Labs: 01/27/17 06:47 01/27/17 06:47 PT 11.8 SECONDS (9.7-12.2) 01/25/17 18:50 INR 1.1 01/25/17 18:50 APTT 33 SECONDS (21-34) 01/25/17 18:50 Assessment and Plan - Assessment and Plan (Free Text) Assessment: 71 yo M with no PMH that is s/p EGD (POD#2) and retrieval of foreign object ( chicken bone) from esophageal sphincter. Plan: (1) Swallowed foreign body -POD#2 EGD and removal of chicken bone from esophageal sphincter -Soft tissue xray: Suspicious for foreign body likely bone extending posterior to the larynx into the proximal protion of the esophagus. No evidence of acute pathology in the neck -Consult GI Dr. Thompson on board (2) Elevated blood-pressure reading without diagnosis of hypertension Assessment & Plan: Patient has no prior history of hypertension Will monitor blood pressure to determine if needs oral agents or not Status: Acute (3) Prophylactic measure Assessment & Plan: protonix 40mg IV q daily for GI ppx Clarification: palliative care to setup advance care directive given he does not have family. Needed immediate surgical intervention for removal of chicken bone. Status: Acute
--- NOTE | 2017-01-27 09:36 | CP.PCM.CON ---
History of Present Illness - History of Present Illness History of Present Illness: Palliative consult Requested by Brittney DUMONT Reason: Goals of care discussion Patient is a 71 yo male admitted after having sensation that " something got stuck " in his throat after eating chicken meat. The CT neck soft tissue confirmed presence of foreign object , possible bone, requiring emergency surgical removal. After the procedure patient remained on MV support for safety due to swelling of neck soft tissue. Patient is S/P extubation last night and is no in acute distress. Palliative consult was called for goals of care discussion as a terminal gauger supervisor plan in case patient ever become unable to advocate for him self, as patient has no family and friend in this country and does not want to assign anyone as a surrogate decision maker. PMH: no significant Soc. Hx: lives alone, has son Cuong who lives in [facility], used to work as a rodriguez , now does construction job Fam Hx: no significant Review of Systems - Constitutional Constitutional: absent: As Per HPI, Anorexia, Chills, Daytime Sleepiness, Excessive Sweating, Fatigue, Fever, Frequent Falls, Headache, Increased Appetite , Lethargy, Malaise, Night Sweats, Snoring, Sleep Apnea, Weight Gain, Weight Loss, Weakness, Other - EENT Eyes: absent: As Per HPI, Blind Spots, Blurred Vision, Change in Vision, Decreased Night Vision, Diplopia, Discharge, Dry Eye, Exophthalmos, Floaters, Irritation, Itchy Eyes, Loss of Peripheral Vision, Pain, Photophobia, Requires Corrective Lenses, Sees Flashes, Spots in Vision, Tunnel Vision, Other Visual Disturbances, Loss of Vision, Other Additional comments: Reports mild discomfort to the right side of throat - Cardiovascular Cardiovascular: absent: As Per HPI, Acrocyanosis, Chest Pain, Chest Pain at Rest , Chest Pain with Activity, Claudication, Diaphoresis, Dyspnea, Dyspnea on Exertion, Edema, Irregular Heart Rhythm, Pain Radiating to Arm/Neck/Jaw, Leg Edema, Leg Ulcers, Lightheadedness, Orthopnea, Palpitations, Paroxysmal Nocturnal Dyspnea, Pedal Edema, Radiating Pain, Rapid Heart Rate, Slow Heart Rate, Syncope, Other - Respiratory Respiratory: absent: As Per HPI, Cough, Dyspnea, Hemoptysis, Dyspnea on Exertion , Wheezing, Snoring, Stridor, Pain on Inspiration, Chest Congestion, Excessive Mucous Production, Change in Mucous Color, Pain with Coughing, Other - Gastrointestinal Gastrointestinal: absent: As Per HPI, Abdominal Pain, Belching, Bloating, Change in Bowel Habits, Change in Stool Character, Coffee Ground Emesis, Constipation, Cramping, Diarrhea, Dyspepsia, Dysphagia, Early Satiety, Excessive Flatus, Fecal Incontinence, Heartburn, Hematemesis, Hematochezia, Loose Stools, Melena, Nausea, Odynophagia, Temesmus, Vomiting, Other - Genitourinary Genitourinary: absent: As Per HPI, Change in Urinary Stream, Difficulty Urinating, Dysuria, Flank Pain, Hematuria, Pyuria, Nocturia, Urinary Incontinence, Urinary Frequency, Urinary Hesitance, Urinary Urgency, Voiding Freq/Small Amts, Freq UTI, Hx Renal/Bladder Calculi, Hx /Renal Surgery, Bladder Distension, Other - Musculoskeletal Musculoskeletal: absent: As Per HPI, Abnormal Gait, Arthralgias, Atrophy, Back Pain, Deformity, Joint Swelling, Limited Range of Motion, Loss of Height, Muscle Cramps, Muscle Weakness, Myalgias, Neck Pain, Numbness, Radiating Pain into Limb, Stiffness, Tingling, Other - Integumentary Integumentary: absent: As Per HPI, Acne, Alopecia, Bleeding Lesions, Change in Hair, Change in Nails, Change in Pigmentation, Changing Lesions, Dry Skin, Erythema, Furuncle, Hirsutism, Lesions, New Lesions, Non-Healing Lesions, Photosensitivity, Pruritus, Rash, Skin Pain, Skin Ulcer, Sores, Striae, Swelling , Unusual Bruising, Wounds, Jaundice, Other - Neurological Neurological: absent: As Per HPI, Abnormal Gait, Abnormal Hearing, Abnormal Movements, Abnormal Speech, Behavioral Changes, Burning Sensations, Confusion, Convulsions, Disequilibrium, Dizziness, Numbness, Focal Weakness, Frequent Falls , Headaches, Lack of Coordination, Loss of Vision, Memory Loss, Paresthesias, Radicular Pain, Restless Legs, Sensory Deficit, Syncope, Tingling, Tremor, Vertigo, Weakness, Other Visual Disturbances, Other - Psychiatric Psychiatric: absent: As Per HPI, Abnormal Sleep Pattern, Anhedonia, Anxiety, Auditory Hallucinations, Behavioral Changes, Change in Appetite, Change in Libido, Confusion, Depression, Difficulty Concentrating, Hallucinations, Homicidal Ideation, Hopelessness, Irritability, Memory Loss, Mood Swings, Panic Attacks, Paranoia, Suicidal Ideation, Visual Hallucinations, Tactile Hallucinations, Other - Endocrine Endocrine: absent: As Per HPI, Change in Body Appearance, Change in Libido, Cold Intolorance, Deepening of Voice, Excessive Sweating, Fatigue, Flushing, Heat Intolorance, Increase in Ring/Shoe/Hat Size, Palpitations, Polydipsia, Polyphagia, Polyuria, Other - Hematologic/Lymphatic Hematologic: absent: As Per HPI, Easy Bleeding, Easy Bruising, Lymphadenopathy, Other Past Patient History - Infectious Disease Hx of Infectious Diseases: None - Past Medical History & Family History Past Medical History?: No - Past Social History Smoking Status: Former Smoker Chewing Tobacco Use: No Cigar Use: No Alcohol: Occasional Drugs: Denies Home Situation {Lives}: Friends Domestic Violence: Negative - MUSCULOSKELETAL/RHEUMATOLOGICAL Hx Falls: No - PSYCHIATRIC Hx Substance Use: No - SURGICAL HISTORY Hx Surgeries: No - ANESTHESIA Hx Anesthesia: No Hx Anesthesia Reactions: No Meds Allergies/Adverse Reactions: Allergies Allergy/AdvReac Type Severity Reaction Status Date / Time No Known Allergies Allergy Verified 01/25/17 15:13 - Medications Medications: Current Medications Enoxaparin Sodium (Lovenox) 40 mg SC DAILY [facility] Dexmedetomidine HCl 200 mcg/ (Sodium Chloride) 50 mls @ 3.03 mls/hr IV TITR PRN ; Protocol; 0.2 MCG/KG/HR PRN Reason: Sedation Last Admin: 01/26/17 06:44 Dose: 0.4 mcg/kg/hr, 6.1 mls/hr Folic Acid 1 mg/ Thiamine HCl 100 mg/ Multivitamins/Vitamin C 10 ml/ Dextrose 1 ,011.2 mls @ 75 mls/hr IV .[id number] PRN Last Admin: 01/25/17 23:30 Dose: 75 mls/hr Piperacillin Sod/Tazobactam Sod (Zosyn 3.375 Gm Iv Premix) 3.375 gm in 50 mls @ 100 mls/hr IVPB Q6H [facility] Last Admin: 01/27/17 05:30 Dose: 100 mls/hr Sodium Chloride (Sodium Chloride 0.9%) 1,000 mls @ 100 mls/hr IV .Q10H [facility] Last Admin: 01/27/17 02:40 Dose: 100 mls/hr Lorazepam (Ativan) 2 mg IVP Q6H PRN PRN Reason: Anxiety Last Admin: 01/25/17 22:45 Dose: 2 mg Pantoprazole Sodium (Protonix Inj) 40 mg IVP Q12H [facility] Last Admin: 01/26/17 22:06 Dose: 40 mg Physical Exam - Constitutional Appears: No Acute Distress - Head Exam Head Exam: ATRAUMATIC, NORMAL INSPECTION, NORMOCEPHALIC - Eye Exam Eye Exam: EOMI, Normal appearance, PERRL Pupil Exam: NORMAL ACCOMODATION - ENT Exam ENT Exam: Mucous Membranes Moist, Normal Exam - Neck Exam Neck exam: Positive for: Normal Inspection - Respiratory Exam Respiratory Exam: Clear to Auscultation Bilateral, NORMAL BREATHING PATTERN - Cardiovascular Exam Cardiovascular Exam: REGULAR RHYTHM, +S1, +S2 - GI/Abdominal Exam GI & Abdominal Exam: Normal Bowel Sounds, Soft - Rectal Exam Rectal Exam: Deferred - Exam Exam: NORMAL INSPECTION - Extremities Exam Extremities exam: Positive for: normal inspection - Back Exam Back exam: NORMAL INSPECTION - Neurological Exam Neurological exam: Alert, Oriented x3 - Psychiatric Exam Psychiatric exam: Normal Affect, Normal Mood - Skin Skin Exam: Normal Color, Warm Results - Vital Signs Recent Vital Signs: Last Vital Signs Temp 98.6 F 01/26/17 08:00 Pulse 76 01/27/17 08:30 Resp 12 01/27/17 08:30 BP 119/69 01/27/17 08:08 Pulse Ox 96 01/27/17 08:30 - Labs Result Diagrams: 01/27/17 06:47 01/27/17 06:47 Labs: Laboratory Results - last 24 hr 01/27/17 01/27/17 06:47 06:47 WBC 8.5 RBC 4.32 L Hgb 13.6 Hct 39.8 MCV 92.0 MCH 31.5 H MCHC 34.3 RDW 13.0 Plt Count 160 MPV 7.3 Neut % (Auto) 64.8 Lymph % (Auto) 23.7 Carroll % (Auto) 8.7 Eos % (Auto) 2.1 Baso % (Auto) 0.7 Neut # 5.5 Lymph # 2.0 Carroll # 0.7 Eos # 0.2 Baso # 0.1 Sodium 137 Potassium 3.4 L Chloride 104 Carbon Dioxide 23 Anion Gap 13 BUN 12 Creatinine 1.0 Est GFR ( Amer) > 60 Est GFR (Non-Af Amer) > 60 Random Glucose 102 Calcium 8.0 L Phosphorus 2.7 Magnesium 1.9 Total Bilirubin 2.2 H AST 32 ALT 19 L D Alkaline Phosphatase 58 Total Protein 6.5 Albumin 3.4 L Globulin 3.1 Albumin/Globulin Ratio 1.1 Assessment & Plan - Assessment and Plan (Free Text) Assessment: palliative consult Code status Full Code prior to consult, no advance directive on chart, PPS 80% I reviewed medical records, all diagnostic studies, examined and interviewed patient in the bed, discussed my finding with nursing staff. Goals of care discussed. POLST completed. Patient is alert, oriented X 3, in good spirits, S/P extubation last night. Speech is clear. Gag reflex present. Patient reports is hungry. Swallow eval pending. Goals of care discussed as a terminal gauger supervisor plan since patient has no immediate family in this country and does not want to assign a surrogate decision maker. Patient is very reasonable regarding his expectations of life. Patient would want his "andrew life given to him by God" to be preserved by using all prudent and reasonable measures. If for any reason patient's life depends on life support and meaningful recovery was not expected he would prefer to be let go peacefully. I suggested patient names his son Cuong as a surrogate decision maker , what patient declined. He reports having good relationship with the son, but still does not want any one to be involved in his decision making process. I assisted him with completing the POLST, asking for DNR/DNI . Impression * Patient is rather healthy man, S/P extubation, after removal of foreign object from his throat * Swallow eval is pending, prior transfer to floor * Patient lives alone in the [facility] and does not have surrogate decision maker * Goals of care discussed for eventual unfortunate encounter in the future * Patient has realistic expectations of his life, but dos not want his life to be unnecessary prolonged on life support if Medical team feels that meaningful recovery was not expected * Patient does not want his son Cuong who lives in [facility] to be his surrogate decision maker Suggestion * Agree with plan for transfer to the floor * Would discharge home later this inocencio if food tolerated and no respiratory distress occurred * POLST on chart Thank you for consulting Palliative care
[2017-01-27] MEDS ORDERED: Enoxaparin 40 mg Syringe SC SCH (10:00)
[2017-01-27 13:57] VITALS: BP 106/61; PULSE 89; RESP 20; O2SAT 97
--- NOTE | 2017-01-27 14:34 | CP.PCM.DIS ---
<Patrizia Pedro - Last Filed: 01/27/17 14:36> Provider - Provider Date of Admission: 01/25/17 18:14 Attending physician: Hannah Lugo DO Primary care physician: None Consults: GI: Dr. Smith Time Spent in preparation of Discharge (in minutes): 45 Hospital Course - Lab Results Lab Results: Most Recent Lab Values WBC 8.5 K/uL (4.8-10.8) 01/27/17 06:47 RBC 4.32 Mil/uL (4.40-5.90) L 01/27/17 06:47 Hgb 13.6 g/dL (12.0-18.0) 01/27/17 06:47 Hct 39.8 % (35.0-51.0) 01/27/17 06:47 MCV 92.0 fL (80.0-94.0) 01/27/17 06:47 MCH 31.5 pg (27.0-31.0) H 01/27/17 06:47 MCHC 34.3 g/dL (33.0-37.0) 01/27/17 06:47 RDW 13.0 % (11.5-14.5) 01/27/17 06:47 Plt Count 160 K/uL (130-400) 01/27/17 06:47 MPV 7.3 fL (7.2-11.7) 01/27/17 06:47 Neut % (Auto) 64.8 % (50.0-75.0) 01/27/17 06:47 Lymph % (Auto) 23.7 % (20.0-40.0) 01/27/17 06:47 Bates % (Auto) 8.7 % (0.0-10.0) 01/27/17 06:47 Eos % (Auto) 2.1 % (0.0-4.0) 01/27/17 06:47 Baso % (Auto) 0.7 % (0.0-2.0) 01/27/17 06:47 Neut # 5.5 K/uL (1.8-7.0) 01/27/17 06:47 Lymph # 2.0 K/uL (1.0-4.3) 01/27/17 06:47 Bates # 0.7 K/uL (0.0-0.8) 01/27/17 06:47 Eos # 0.2 K/uL (0.0-0.7) 01/27/17 06:47 Baso # 0.1 K/uL (0.0-0.2) 01/27/17 06:47 PT 11.8 SECONDS (9.7-12.2) 01/25/17 18:50 INR 1.1 01/25/17 18:50 APTT 33 SECONDS (21-34) 01/25/17 18:50 Puncture Site Rb 01/26/17 05:31 pCO2 36 mm/Hg (35-45) 01/26/17 05:31 pO2 147 mm/Hg (80-100) H 01/26/17 05:31 HCO3 24.4 mmol/L (21-28) 01/26/17 05:31 ABG pH 7.42 (7.35-7.45) 01/26/17 05:31 ABG Total CO2 24.5 mmol/L (22-28) 01/26/17 05:31 ABG O2 Saturation 97.7 % (95-98) 01/26/17 05:31 ABG Base Excess -0.7 mmol/L (-2.0-3.0) 01/26/17 05:31 ABG Hemoglobin 14.1 g/dL (11.7-17.4) 01/26/17 05:31 ABG Carboxyhemoglobin 0.3 % (0.5-1.5) L 01/26/17 05:31 POC ABG HHb (Measured) 2.3 % (0.0-5.0) 01/26/17 05:31 ABG Methemoglobin 1.0 % (0.0-3.0) 01/26/17 05:31 Santi Test Na 01/26/17 05:31 ABG Potassium 3.3 mmol/L (3.6-5.2) L 01/25/17 22:45 A-a O2 Difference 165.0 mm/Hg 01/26/17 05:31 Respiratory Index 1.1 01/26/17 05:31 Hgb O2 Saturation 96.4 % (95.0-98.0) 01/26/17 05:31 Sodium 141.0 mmol/l (132-148) 01/25/17 22:45 Chloride 109.0 mmol/L (98-107) H 01/25/17 22:45 Glucose 138 mg/dl (75-110) H 01/25/17 22:45 Lactate 1.5 mmol/L (0.7-2.1) 01/25/17 22:45 Mechanical Rate 12 01/26/17 05:31 FiO2 50.0 % 01/26/17 05:31 Tidal Volume 500 01/26/17 05:31 PEEP 5 01/26/17 05:31 Sodium 137 mmol/L (132-148) 01/27/17 06:47 Potassium 3.4 mmol/L (3.6-5.2) L 01/27/17 06:47 Chloride 104 mmol/L (98-107) 01/27/17 06:47 Carbon Dioxide 23 mmol/L (22-30) 01/27/17 06:47 Anion Gap 13 (10-20) 01/27/17 06:47 BUN 12 mg/dL (9-20) 01/27/17 06:47 Creatinine 1.0 MG/DL (0.8-1.5) 01/27/17 06:47 Est GFR ( Amer) > 60 01/27/17 06:47 Est GFR (Non-Af Amer) > 60 01/27/17 06:47 Random Glucose 102 mg/dL (75-110) 01/27/17 06:47 Calcium 8.0 mg/dl (8.6-10.4) L 01/27/17 06:47 Phosphorus 2.7 mg/dL (2.5-4.5) 01/27/17 06:47 Magnesium 1.9 mg/dL (1.6-2.3) 01/27/17 06:47 Total Bilirubin 2.2 mg/dL (0.2-1.3) H 01/27/17 06:47 AST 32 U/L (17-59) 01/27/17 06:47 ALT 19 U/L (21-72) L D 01/27/17 06:47 Alkaline Phosphatase 58 U/L (38-126) 01/27/17 06:47 Total Protein 6.5 g/dL (6.3-8.3) 01/27/17 06:47 Albumin 3.4 g/dL (3.5-5.0) L 01/27/17 06:47 Globulin 3.1 gm/dL (2.2-3.9) 01/27/17 06:47 Albumin/Globulin Ratio 1.1 (1.0-2.1) 01/27/17 06:47 Arterial Blood Potassium 3.3 mmol/L (3.6-5.2) L 01/25/17 22:45 - Hospital Course Hospital Course: Upon Admission: 71 yo male, former smoker, with no PMHx on no meds presented with dysphagia. Patient was at a restaurant, eating a chicken breast, and felt like something was stuck in his throat. He had pain but continued eating. On the morning of admission he ate bread and cheese with water but reported pain throughout the meal which is why he decided to come in. In the ER patient had HTN urgency with systolic BP 150-180mmHg and diastolic BP 80-111. Patient was given hydralazine in the ER to control BP. EKG showed NSR and patient had leukocytosis of 13.3. Dr. Choudhury ENT was contacted who recommended a soft tissue neck CT that showed foreign body likely bone posterior to the larynx into the proximal portion of esophagus. GI congregational care pastor, Dr. Dean, was consulted after the CT results and it was deemed patient was taken for EGD. Patient had EGD on 01/25 with retrieval of foreign object from esophageal sphincter. He was given one dose of decadron and kept intubated overnight for airway protection due to extensive manipulation and soft tissue swelling. Patient was weaned and then extubated 01/26 after tolerating CPAP trial and having VSS. Overnight after extubation patient was kept NPO and monitored on TELE in the ICU. On morning of discharge patient passed swallow eval and dietary recommendations of a soft diet. On day of discharge patient was deemed medically stable for discharge. 1) Swallowing foreign body: resolved 2) Elevated BP without dx of HTN: patient to be discharged with Rx for norvasc 5mg po daily and to follow up with PMD in 7 days Upon Discharge: Patient stable for discharge home as per Dr. Lugo Patient to start taking new medication as prescribed: -Norvasc 5mg po daily Disp#30 Patient to follow up at [facility] to be established with PMD within 7 days If symptoms persist or worsen patient to visit ER immediately. Instructions discussed in detail with patient who understands and agrees. Discharge Exam - Head Exam Head Exam: ATRAUMATIC, NORMAL INSPECTION, NORMOCEPHALIC - Eye Exam Eye Exam: EOMI, Normal appearance, PERRL. absent: Conjunctival injection, Scleral icterus Pupil Exam: NORMAL ACCOMODATION - ENT Exam ENT Exam: Mucous Membranes Moist - Neck Exam Neck exam: Full Rom, Normal Inspection - Respiratory Exam Respiratory Exam: Clear to PA & Lateral, NORMAL BREATHING PATTERN, UNREMARKABLE. absent: Accessory Muscle Use, Rales, Rhonchi, Wheezes, Respiratory Distress - Cardiovascular Exam Cardiovascular Exam: REGULAR RHYTHM, RRR, +S1, +S2. absent: Systolic Murmur - GI/Abdominal Exam GI & Abdominal Exam: Normal Bowel Sounds, Soft. absent: Firm, Guarding, Rigid, Tenderness - Rectal Exam Rectal Exam: Deferred - Extremities Exam Extremities exam: normal capillary refill, normal inspection, pedal pulses present - Back Exam Back exam: NORMAL INSPECTION. absent: rash noted - Neurological Exam Neurological exam: Alert, CN II-XII Intact, Oriented x3 - Psychiatric Exam Psychiatric exam: Normal Affect, Normal Mood - Skin Skin Exam: Dry, Intact, Normal Color, Warm Discharge Plan - Discharge Medications Prescriptions: amLODIPine [Norvasc] 5 mg PO DAILY #30 tab - Follow Up Plan Condition: STABLE Disposition: HOME/ ROUTINE Additional Instructions: Patient stable for discharge home as per Dr. Lugo Patient to start taking new medication as prescribed: -Norvasc 5mg po daily Disp#30 Patient to follow up at [facility] to be established with PMD within 7 days If symptoms persist or worsen patient to visit ER immediately. Instructions discussed in detail with patient who understands and agrees. <Hannah Lugo V - Last Filed: 01/27/17 15:20> Provider - Provider Date of Admission: 01/25/17 18:14 Attending physician: Hannah Lugo DO Diagnosis - Discharge Diagnosis (1) Swallowed foreign body Status: Acute (2) Elevated blood-pressure reading without diagnosis of hypertension Status: Acute (3) Prophylactic measure Status: Acute Hospital Course - Lab Results Lab Results: Micro Results 01/25/17 22:31 Naris MRSA Culture (Admit) - Final MRSA NOT DETECTED Most Recent Lab Values WBC 8.5 K/uL (4.8-10.8) 01/27/17 06:47 RBC 4.32 Mil/uL (4.40-5.90) L 01/27/17 06:47 Hgb 13.6 g/dL (12.0-18.0) 01/27/17 06:47 Hct 39.8 % (35.0-51.0) 01/27/17 06:47 MCV 92.0 fL (80.0-94.0) 01/27/17 06:47 MCH 31.5 pg (27.0-31.0) H 01/27/17 06:47 MCHC 34.3 g/dL (33.0-37.0) 01/27/17 06:47 RDW 13.0 % (11.5-14.5) 01/27/17 06:47 Plt Count 160 K/uL (130-400) 01/27/17 06:47 MPV 7.3 fL (7.2-11.7) 01/27/17 06:47 Neut % (Auto) 64.8 % (50.0-75.0) 01/27/17 06:47 Lymph % (Auto) 23.7 % (20.0-40.0) 01/27/17 06:47 Bates % (Auto) 8.7 % (0.0-10.0) 01/27/17 06:47 Eos % (Auto) 2.1 % (0.0-4.0) 01/27/17 06:47 Baso % (Auto) 0.7 % (0.0-2.0) 01/27/17 06:47 Neut # 5.5 K/uL (1.8-7.0) 01/27/17 06:47 Lymph # 2.0 K/uL (1.0-4.3) 01/27/17 06:47 Bates # 0.7 K/uL (0.0-0.8) 01/27/17 06:47 Eos # 0.2 K/uL (0.0-0.7) 01/27/17 06:47 Baso # 0.1 K/uL (0.0-0.2) 01/27/17 06:47 PT 11.8 SECONDS (9.7-12.2) 01/25/17 18:50 INR 1.1 01/25/17 18:50 APTT 33 SECONDS (21-34) 01/25/17 18:50 Puncture Site Rb 01/26/17 05:31 pCO2 36 mm/Hg (35-45) 01/26/17 05:31 pO2 147 mm/Hg (80-100) H 01/26/17 05:31 HCO3 24.4 mmol/L (21-28) 01/26/17 05:31 ABG pH 7.42 (7.35-7.45) 01/26/17 05:31 ABG Total CO2 24.5 mmol/L (22-28) 01/26/17 05:31 ABG O2 Saturation 97.7 % (95-98) 01/26/17 05:31 ABG Base Excess -0.7 mmol/L (-2.0-3.0) 01/26/17 05:31 ABG Hemoglobin 14.1 g/dL (11.7-17.4) 01/26/17 05:31 ABG Carboxyhemoglobin 0.3 % (0.5-1.5) L 01/26/17 05:31 POC ABG HHb (Measured) 2.3 % (0.0-5.0) 01/26/17 05:31 ABG Methemoglobin 1.0 % (0.0-3.0) 01/26/17 05:31 Santi Test Na 01/26/17 05:31 ABG Potassium 3.3 mmol/L (3.6-5.2) L 01/25/17 22:45 A-a O2 Difference 165.0 mm/Hg 01/26/17 05:31 Respiratory Index 1.1 01/26/17 05:31 Hgb O2 Saturation 96.4 % (95.0-98.0) 01/26/17 05:31 Sodium 141.0 mmol/l (132-148) 01/25/17 22:45 Chloride 109.0 mmol/L (98-107) H 01/25/17 22:45 Glucose 138 mg/dl (75-110) H 01/25/17 22:45 Lactate 1.5 mmol/L (0.7-2.1) 01/25/17 22:45 Mechanical Rate 12 01/26/17 05:31 FiO2 50.0 % 01/26/17 05:31 Tidal Volume 500 01/26/17 05:31 PEEP 5 01/26/17 05:31 Sodium 137 mmol/L (132-148) 01/27/17 06:47 Potassium 3.4 mmol/L (3.6-5.2) L 01/27/17 06:47 Chloride 104 mmol/L (98-107) 01/27/17 06:47 Carbon Dioxide 23 mmol/L (22-30) 01/27/17 06:47 Anion Gap 13 (10-20) 01/27/17 06:47 BUN 12 mg/dL (9-20) 01/27/17 06:47 Creatinine 1.0 MG/DL (0.8-1.5) 01/27/17 06:47 Est GFR ( Amer) > 60 01/27/17 06:47 Est GFR (Non-Af Amer) > 60 01/27/17 06:47 Random Glucose 102 mg/dL (75-110) 01/27/17 06:47 Calcium 8.0 mg/dl (8.6-10.4) L 01/27/17 06:47 Phosphorus 2.7 mg/dL (2.5-4.5) 01/27/17 06:47 Magnesium 1.9 mg/dL (1.6-2.3) 01/27/17 06:47 Total Bilirubin 2.2 mg/dL (0.2-1.3) H 01/27/17 06:47 AST 32 U/L (17-59) 01/27/17 06:47 ALT 19 U/L (21-72) L D 01/27/17 06:47 Alkaline Phosphatase 58 U/L (38-126) 01/27/17 06:47 Total Protein 6.5 g/dL (6.3-8.3) 01/27/17 06:47 Albumin 3.4 g/dL (3.5-5.0) L 01/27/17 06:47 Globulin 3.1 gm/dL (2.2-3.9) 01/27/17 06:47 Albumin/Globulin Ratio 1.1 (1.0-2.1) 01/27/17 06:47 Arterial Blood Potassium 3.3 mmol/L (3.6-5.2) L 01/25/17 22:45 Attending/Attestation - Attestation I have personally seen and examined this patient.: Yes I have fully participated in the care of the patient.: Yes I have reviewed all pertinent clinical information, including history, physical exam and plan: Yes Notes (Text): Patient seen, examined, and case discussed with day-time resident. Patient denies acute complaints. Patient passed swallow evaluation and tolerating small bites. Patient instructed to make dietary modifications in light of recent chicken bone removal. Patient sitting upright, speaking clearly. Patient to start Norvasc 5mg PO once a day to help with elevated blood pressure. Patient has not seen a doctor for 20 years, recommended to establish care with [facility] ([phone]) to follow-up regarding his blood pressure. Discussed with GI, patient stable for discharge from their standpoint. Echocardiogram: normal. Patient medically stable for discharge. Patient transferred earlier from the ICU to floor. Discussed with GI, patient is stable from their standpoint. Patient has had no tremors or signs of alcohol withdrawal advised to stop drinking. Assessment/Plan (1) Swallowed foreign body Assessment & Plan: Patient currently in ICU s/p EGD removal of chicken bone POD [address] Thompson on board-->help appreciated Soft tissue xray: Suspicious for foreign body likely bone extending posterior to the larynx into the proximal protion of the esophagus. No evidence of acute pathology in the neck EGD: removal of chicken bone on 01/25/17 Patient has passed swallow eval Tolerating small mechanical bites as recommended by dietary Status: Resolved (2) Elevated blood-pressure reading without diagnosis of hypertension Assessment & Plan: Patient to be started Norvasc 5mg PO once a daily (spoke with pharmacy, can be crushed) Patient asymptomatic Echocardiogram normal Status: Chronic (3) Hyperkalemia -replete (4) Prophylactic measure Assessment & Plan: protonix 40mg IV q daily for GI ppx Passed swallow eval Tolerative diet Code status: DNR/DNI
--- NOTE | 2017-01-27 15:03 | CP.CCUPN ---
CCU Subjective - Physician Review Subjective (Free Text): 01/27/17 15:00 PGY-1 ICU progress note Pt seen and examined at bedside. No issues overnight. Pt extubated yesterday with no complications and tolerating well. Denies any complaints. Critical Care Time Spent (in minutes): 35 CCU Objective - Vital Signs / Intake & Output Vital Signs (Last 4 hours): Vital Signs Pulse Resp BP Pulse Ox 01/27/17 13:50 89 97 01/27/17 13:40 83 97 01/27/17 13:30 83 97 01/27/17 13:20 88 97 01/27/17 13:10 85 20 96 01/27/17 13:08 79 17 106/61 96 01/27/17 13:00 83 17 96 01/27/17 12:50 83 17 97 01/27/17 12:40 84 14 97 01/27/17 12:30 82 16 95 01/27/17 12:20 80 16 96 01/27/17 12:10 84 18 96 01/27/17 12:08 85 18 109/60 97 01/27/17 12:00 84 18 96 01/27/17 11:50 86 17 96 01/27/17 11:40 83 14 96 01/27/17 11:30 83 17 95 01/27/17 11:20 86 17 97 01/27/17 11:10 87 22 97 01/27/17 11:08 87 12 139/79 97 Intake and Output (Last 8hrs): Intake & Output 01/27/17 01/27/17 01/27/17 06:59 14:59 22:59 Intake Total 350 600 Output Total 240 335 Balance 110 265 Intake: Intake, IV Amount 350 600 Left Antecubital 350 600 Output: Urine 240 335 Condom 240 335 - Physical Exam Head: Positive for: Atraumatic, Normocephalic Mouth: Positive for: Moist Mucous Membranes Respiratory/Chest: Positive for: Clear to Auscultation, Good Air Exchange Cardiovascular: Positive for: Regular Rate and Rhythm, Normal S1, S2 Abdomen: Positive for: Distention, Normal Bowel Sounds Upper Extremity: Positive for: NORMAL PULSES Lower Extremity: Positive for: NORMAL PULSES Neurological: Positive for: Speech Normal, Motor Func Grossly Intact, Other ( sedated) Skin: Positive for: Warm, Dry Psychiatric: Positive for: Alert, Oriented x 3 - Medications Active Medications: Active Medications Generic Name Dose Route Start Last Admin Trade Name Rejiq PRN Reason Stop Dose Admin Amlodipine Besylate 5 mg 01/27/17 13:00 Norvasc PO DAILY RILEY Enoxaparin Sodium 40 mg 01/27/17 10:00 01/27/17 10:43 Lovenox SC 40 mg DAILY RILEY Administration Pantoprazole Sodium 40 mg 01/25/17 22:45 01/27/17 10:43 Protonix Inj IVP 40 mg Q12H RILEY Administration - Patient Studies Lab Studies: Microbiology Studies 01/25/17 22:31 MRSA Culture (Admit) - Final Naris MRSA NOT DETECTED Lab Studies 01/27/17 01/27/17 Range/Units 06:47 06:47 WBC 8.5 (4.8-10.8) K/uL RBC 4.32 L (4.40-5.90) Mil/uL Hgb 13.6 (12.0-18.0) g/dL Hct 39.8 (35.0-51.0) % MCV 92.0 (80.0-94.0) fL MCH 31.5 H (27.0-31.0) pg MCHC 34.3 (33.0-37.0) g/dL RDW 13.0 (11.5-14.5) % Plt Count 160 (130-400) K/uL MPV 7.3 (7.2-11.7) fL Neut % (Auto) 64.8 (50.0-75.0) % Lymph % (Auto) 23.7 (20.0-40.0) % [place] % (Auto) 8.7 (0.0-10.0) % Eos % (Auto) 2.1 (0.0-4.0) % Baso % (Auto) 0.7 (0.0-2.0) % Neut # 5.5 (1.8-7.0) K/uL Lymph # 2.0 (1.0-4.3) K/uL [place] # 0.7 (0.0-0.8) K/uL Eos # 0.2 (0.0-0.7) K/uL Baso # 0.1 (0.0-0.2) K/uL Sodium 137 (132-148) mmol/L Potassium 3.4 L (3.6-5.2) mmol/L Chloride 104 (98-107) mmol/L Carbon Dioxide 23 (22-30) mmol/L Anion Gap 13 (10-20) BUN 12 (9-20) mg/dL Creatinine 1.0 (0.8-1.5) MG/DL Est GFR ( Amer) > 60 Est GFR (Non-Af Amer) > 60 Random Glucose 102 (75-110) mg/dL Calcium 8.0 L (8.6-10.4) mg/dl Phosphorus 2.7 (2.5-4.5) mg/dL Magnesium 1.9 (1.6-2.3) mg/dL Total Bilirubin 2.2 H (0.2-1.3) mg/dL AST 32 (17-59) U/L ALT 19 L D (21-72) U/L Alkaline Phosphatase 58 (38-126) U/L Total Protein 6.5 (6.3-8.3) g/dL Albumin 3.4 L (3.5-5.0) g/dL Globulin 3.1 (2.2-3.9) gm/dL Albumin/Globulin Ratio 1.1 (1.0-2.1) Laboratory Results - last 24 hr 01/27/17 01/27/17 06:47 06:47 WBC 8.5 RBC 4.32 L Hgb 13.6 Hct 39.8 MCV 92.0 MCH 31.5 H MCHC 34.3 RDW 13.0 Plt Count 160 MPV 7.3 Neut % (Auto) 64.8 Lymph % (Auto) 23.7 [place] % (Auto) 8.7 Eos % (Auto) 2.1 Baso % (Auto) 0.7 Neut # 5.5 Lymph # 2.0 [place] # 0.7 Eos # 0.2 Baso # 0.1 Sodium 137 Potassium 3.4 L Chloride 104 Carbon Dioxide 23 Anion Gap 13 BUN 12 Creatinine 1.0 Est GFR ( Amer) > 60 Est GFR (Non-Af Amer) > 60 Random Glucose 102 Calcium 8.0 L Phosphorus 2.7 Magnesium 1.9 Total Bilirubin 2.2 H AST 32 ALT 19 L D Alkaline Phosphatase 58 Total Protein 6.5 Albumin 3.4 L Globulin 3.1 Albumin/Globulin Ratio 1.1 Review of Systems - Review of Systems All systems: reviewed and no additional remarkable complaints except (where noted in HPI) Critical Care Progress Note - Nutrition Nutrition: Nutrition Category Date Time Status Heart Healthy Diet [DIET] Diets 01/27/17 Lunch Active Assessment/Plan - Assessment and Plan (Free Text) Assessment: This is a 71 yo M with no PMH that is s/p EGD (POD#1) and retrieval of foreign object (chicken bone) from esophageal sphincter. Pt intubated overnight for airway protection due extensive manipulation and soft tissue swelling. Now extubated and tolerating well. Plan: Pt has no complaints. Hemodynamically stable and in no respiratory distress. To be transferred to med/surg today for likely d/c home pending GI clearance
[2017-01-27] MEDS ORDERED: Potassium Chloride 20 mEq ER Tab PO ONE (15:09)
[2017-01-27] MEDS ORDERED: Potassium Chloride 20 mEq/15 ml LIQ UD PO ONE (15:30)
[2017-01-27 18:21] VITALS: TEMP 98.3
== END 2017-01-27 17:11 | disposition home or self-care (01) | DRG 189 ==
LOC: C.ER 15:10 → C.9E 18:14 → C.6T 19:40 → C.9I 22:29
PROVIDERS: ADMIT Hospitalist; ATTEND Hospitalist
PROC: 5A1935Z Respiratory Ventilation, Less than 24 Consecutive Hours (ICD-10-PCS; 2017-01-25)
PROC: 0DC18ZZ Extirpation of Matter from Upper Esophagus, Via Natural or Artificial Opening Endoscopic (ICD-10-PCS; principal; 2017-01-25 19:30)
DX: T18.128A Food in esophagus causing other injury, initial encounter (principal); K29.80 Duodenitis without bleeding; I16.0 Hypertensive urgency; Z66 Do not resuscitate; Z87.891 Personal history of nicotine dependence